=== PATIENT | male | born 1955 | race Caucasian/White ===

== ENCOUNTER 2017-03-31 15:05 | Inpatient (IN) ==
[2017-03-31] MEDS ORDERED: 0.9 % Sodium Chloride 1,000 ML IVC ONE (15:09)
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
[2017-03-31 15:31] LABS: Basophils # 0.1 K/mcL (0.0-0.2); Basophils % 0.9 %; Eosinophils # 0.1 K/mcL (0.0-0.6); Eosinophils % 1.5 %; Hematocrit 46.1 % (37.5-50.1); Hemoglobin 15.9 g/dL (12.9-16.9); Immature Granulocytes % 0.1 % (0-4); Lymphocytes # 2.3 K/mcL (0.6-4.6); Lymphocytes % 34.1 %; Mean Corpuscular HGB Conc 34.5 g/dL (31.6-35.5); Mean Corpuscular Hemoglobin 31.2 pg (28.0-33.3); Mean Corpuscular Volume 90.4 fL (83.0-100.0); Mean Platelet Volume 9.4 fL (9.4-12.4); Monocytes # 0.5 K/mcL (0.0-1.3); Monocytes % 7.3 %; Neutrophils # 3.9 K/mcL (1.6-8.9); Platelet Count 187 K/mcL (140-400); Red Cell Distribution Width 12.2 % (11.5-14.5); Segmented Neutrophils % 56.1 %
[2017-03-31 15:36] LABS: INR 1.1; Prothrombin Time 11.7 Seconds (9.4-12.1)
[2017-03-31 15:39] LABS: Activated Partial Thrombo Time 29.8 Seconds (26.0-36.0)
[2017-03-31 15:42] LABS: Bilirubin,Urine Negative (Negative); Blood,Urine Negative (Negative); Clarity,Urine Clear (Clear); Color,Urine Yellow (Yellow); Glucose,Urine (UA) Normal (Normal); Ketones,Urine Negative (Negative); Leukocyte Esterase,Urine Negative (Negative); Nitrite,Urine Negative (Negative); PH,Urine 6.5 pH Units (5.0-8.0); Protein,Urine Negative (Neg-Trace); Specific Gravity,Urine 1.022 (1.010-1.025); Urobilinogen,Urine Normal (Normal)
[2017-03-31 15:59] LABS: BUN/Creatinine Ratio 18 (6-26); Blood Urea Nitrogen 22 mg/dL (6-20); Calcium 8.9 mg/dL (8.6-10.3); Carbon Dioxide 31 mEq/L (23-29); Chloride 100 mEq/L (98-107); Glucose 109 mg/dL (70-105); Osmolality,Calculated 286 (280-300); Potassium 3.2 mEq/L (3.5-5.1); Sodium 136 mEq/L (136-145); eGFR For African Americans > 60 (> 60); eGFR For Non-African Americans > 60 (> 60)
[2017-03-31] MEDS ORDERED: Metoclopramide 10 MG/2 ML VIAL IVP ONE (16:01)
[2017-03-31] MEDS ORDERED: Naloxone 0.4 MG/ML INJ IVP PRN (19:05)
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
[2017-03-31] MEDS: cloNIDine HCl 0.1 MG TABLET PO SCH (21:53)
[2017-03-31] MEDS: *HR* Heparin 5,000 UNIT/ML VIAL SQ SCH (21:53)
[2017-04-01 04:38] LABS: Hematocrit 42.8 % (37.5-50.1); Hemoglobin 14.4 g/dL (12.9-16.9); Mean Corpuscular HGB Conc 33.6 g/dL (31.6-35.5); Mean Corpuscular Hemoglobin 30.5 pg (28.0-33.3); Mean Corpuscular Volume 90.7 fL (83.0-100.0); Platelet Count 179 K/mcL (140-400); Red Blood Count 4.72 M/mcL (4.19-5.50); Red Cell Distribution Width 12.2 % (11.5-14.5)
[2017-04-01 04:52] LABS: BUN/Creatinine Ratio 19 (6-26); Blood Urea Nitrogen 22 mg/dL (6-20); Calcium 8.7 mg/dL (8.6-10.3); Carbon Dioxide 29 mEq/L (23-29); Chloride 101 mEq/L (98-107); Glucose 142 mg/dL (70-105); Osmolality,Calculated 292 (280-300); Sodium 138 mEq/L (136-145); eGFR For African Americans > 60 (> 60); eGFR For Non-African Americans > 60 (> 60)
[2017-04-01] MEDS: *HR* Heparin 5,000 UNIT/ML VIAL SQ SCH ×2 (05:07→17:30)
[2017-04-01] MEDS: Aspirin Enteric Coated 81 MG Tablet PO SCH (08:50)
[2017-04-01] MEDS: cloNIDine HCl 0.1 MG TABLET PO SCH ×2 (08:50→20:43)
[2017-04-01] MEDS: Lisinopril-HCTZ 20-12.5mg TABLET PO SCH (08:51)
[2017-04-01] MEDS: TAMSULOSIN HCL PO SCH (08:52)
[2017-04-01] MEDS: DUTASTERIDE PO SCH (08:52)
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
[2017-04-01] MEDS: Acetaminophen 325 MG TABLET PO PRN (21:12)
[2017-04-02] MEDS: *HR* Heparin 5,000 UNIT/ML VIAL SQ SCH ×2 (05:16→17:00)
[2017-04-02 05:55] LABS: BUN/Creatinine Ratio 17 (6-26); Blood Urea Nitrogen 20 mg/dL (6-20); Calcium 8.9 mg/dL (8.6-10.3); Carbon Dioxide 30 mEq/L (23-29); Chloride 101 mEq/L (98-107); Glucose 119 mg/dL (70-105); Magnesium 1.8 mg/dL (1.6-2.6); Osmolality,Calculated 290 (280-300); Potassium 3.5 mEq/L (3.5-5.1); Sodium 138 mEq/L (136-145); eGFR For African Americans > 60 (> 60); eGFR For Non-African Americans > 60 (> 60)
--- NOTE | 2017-04-02 09:11 | Cardiology Progress Note ---
Date of Encounter: 04/02/17 Time of Encounter: 09:08 Assessment and Plan (1) Syncope Current Visit: Yes Status: Acute Witness syncopal event. Reports history of multiple syncopal events in the past with work-up at [facility] and [facility]. Patient used to have a loop recorder and that was removed. He states he was told it was likely due to very high blood pressure per previous work-ups. Now noted to have bradycardia with HR in the 40's on presentation while awake. May have been related to bradycardia. 2:1 AV block on EKG. Agree with holding beta-clocker. On carvedilol 12.5 mg BID at home. Monitor for rebound hypertension with sudden discontinuation of beta-karen. TTE completed just one week ago at [facility], [place], operated by [facility]. Will order records. 24 hour telemetry review shows avg HR 53 bpm. Min HR 38 bpm at 0230am. HR noted to be in the 40's during waking hours yesterday with junctional rhythm at times. Recommend stress test in am to r/o ischemic cause. Qualifiers: Syncope type: unspecified Qualified Code(s): R55 - Syncope and collapse (2) Symptomatic bradycardia Current Visit: Yes Status: Acute HR reported to be in the 40's on presentation. HR currently mid to upper 50's. Hold AV cecilia karen. No AV cecilia karen in last 24 hours. Telemetry review shows over he last 12 hours avg HR 53 sinus bradycardia. Min HR 38 bpm-SB. No pauses. HR in the 40's during daytime hours yesterday Continue to monitor telemtry. See plan above. (3) CAD (coronary artery disease) Current Visit: Yes Status: Acute H/o CAD s/p 8 cardiac stents. Last stent placement 2 years ago. Denies chest pain or SOB. Follows with Cardiology at [facility]. Continue asa, statin. Home meds clarified. Patient not on plavix currently. Qualifiers: Coronary Disease-Associated Artery/Lesion type: [place] artery [place] vs. transplanted heart: [place] heart Associated angina: without angina Qualified Code(s): I25.10 - Atherosclerotic heart disease of [place] coronary artery without angina pectoris Discussion w patient/family: The assessment and plan as outlined above was discussed with the patient and/or family members who expressed understanding and agreement. All questions were answered. Thank you for involving us in the care of your patient. Please call with any questions. Subjective Principal diagnosis: syncope Interval history: No new events overnight. Denies dizziness or lightheadedness. Objective Vital Signs, Last 4 Hours Temp Pulse Resp BP Pulse Ox 04/02/17 07:43 97.5 F L 60 20 169/97 98 04/02/17 06:07 97 General: Conversant, No Apparent Distress HEENT: Atraumatic, Normocephaly, Mucus Membranes Moist Neck: No JVD, Normal carotid pulses Cardiac: Reg Rate and Rhythm, Normal S1 and S2, No Murmur Lungs: Normal Breath Sounds, No Wheeze, Rales, Rhonchi Neuro: Alert and responsive, No focal deficits noted Abdomen: Soft, Non-Tender Skin: No rashes noted on visualized skin Musculoskeletal: No Chest Wall Tenderness Extremities: No Clubbing, No Cyanosis, No Edema, Normal Pulses Results 04/01/17 03:07 04/02/17 05:25 Lab Results 04/01/17 04/02/17 03:07 05:25 Sodium 138 Potassium 3.5 Chloride 101 Carbon Dioxide 30 H BUN 20 Creatinine 1.16 Glucose 119 H Calcium 8.9 Magnesium 1.8 TSH 5.561 - Imaging and Cardiology Stress Test: pending Echo: pending - EKG Interpretation EKG results cardiology: personally reviewed Consult Discharge Plan - Plan Referrals: NONE,PCP [Primary Care Provider] -
[2017-04-02] MEDS: DUTASTERIDE PO SCH (09:16)
[2017-04-02] MEDS: Lisinopril-HCTZ 20-12.5mg TABLET PO SCH (09:16)
[2017-04-02] MEDS: cloNIDine HCl 0.1 MG TABLET PO SCH ×2 (09:16→20:08)
[2017-04-02] MEDS: TAMSULOSIN HCL PO SCH (09:16)
[2017-04-02] MEDS: Acetaminophen 325 MG TABLET PO PRN (09:16)
[2017-04-02] MEDS: Aspirin Enteric Coated 81 MG Tablet PO SCH (09:16)
[2017-04-02] MEDS ORDERED: amLODIPine 5 MG TABLET PO SCH (09:30)
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
[2017-04-03] MEDS: *HR* Heparin 5,000 UNIT/ML VIAL SQ SCH ×2 (04:24→17:54)
[2017-04-03] MEDS ORDERED: Regadenoson 0.4 MG/5 ML SYRINGE IVP ONE (07:44)
[2017-04-03] MEDS: Lisinopril-HCTZ 20-12.5mg TABLET PO SCH (09:30)
[2017-04-03] MEDS: Aspirin Enteric Coated 81 MG Tablet PO SCH (09:31)
[2017-04-03] MEDS: amLODIPine 5 MG TABLET PO SCH (09:31)
[2017-04-03] MEDS: cloNIDine HCl 0.1 MG TABLET PO SCH ×3 (09:31→23:57)
[2017-04-03] MEDS: Acetaminophen 325 MG TABLET PO PRN (09:35)
--- NOTE | 2017-04-03 11:48 | Internal Med Progress Note ---
Date of Encounter: 04/03/17 Time of Encounter: 11:47 - Assessment and plan (1) Syncope Current Visit: Yes Status: Acute Assessment and plan: Likely secondary to symptomatic bradycardia So far negative troponin CT of head - no acute IHC.. No mass effect.. 1 cm hypodense cystic lesion in the 3rd ventricle at the level of the foramen Monro compatible with Colloid cyst His syncope could be due to bradycardia induced Held B katelyn Cardiology on board and consultation appreciated s/p part I of stress test, 2nd part in am he does have MANAN.. scheduled for sleep study as an out pt His over night pulse study came back as normal Qualifiers: Syncope type: unspecified Qualified Code(s): R55 - Syncope and collapse (2) Symptomatic bradycardia Current Visit: Yes Status: Acute Assessment and plan: currently clinically asymptomatic will cont monitoring closely may need PPM Cardiology on board, f/u stress test in am (3) DVT prophylaxis Current Visit: Yes Status: Acute Assessment and plan: heparin SQ (4) HTN (hypertension) Current Visit: Yes Status: Chronic Assessment and plan: noted to remain hypertensive despite home medications continue amlodipine 10mg PO qd, lisinopril/hctz 40/25mg po qd increased clonidine to 0.2mg PO TID hydralazine 10mg IV q6h SBP>150 will closely monitor bp Qualifiers: Hypertension type: essential hypertension Qualified Code(s): I10 - Essential (primary) hypertension (5) CAD (coronary artery disease) Current Visit: Yes Status: Acute Assessment and plan: resumed all home meds except B Katelyn Qualifiers: Coronary Disease-Associated Artery/Lesion type: [place] artery [place] vs. transplanted heart: [place] heart Associated angina: without angina Qualified Code(s): I25.10 - Atherosclerotic heart disease of [place] coronary artery without angina pectoris (6) MANAN (obstructive sleep apnea) Current Visit: Yes Status: Chronic Assessment and plan: he does have MANAN.. scheduled for sleep study as an out pt I (7) Morbid obesity with BMI of 40.0-44.9, adult Current Visit: Yes Status: Chronic Assessment and plan: counseled to loose weight (8) BPH (benign prostatic hyperplasia) Current Visit: Yes Status: Chronic Assessment and plan: resumed home meds Qualifiers: Lower urinary tract symptom presence: symptoms absent Qualified Code(s): N40.0 - Benign prostatic hyperplasia without lower urinary tract symptoms - Subjective Interval history: Patient seen and examined at bedside. Resting in bed and denies any discomfort. S/P stress test this morning. Awaiting cardiology follow up Bradycardia resolved at this time No overnight issues reported - Constitutional Vitals: Temp Pulse Resp BP Pulse Ox 97.5 F L 63 14 172/95 95 04/03/17 11:04 04/03/17 11:04 04/03/17 11:04 04/03/17 11:04 04/03/17 11:04 General appearance: Present: cooperative, A&O X 3, morbidly obese, no acute distress, answers questions appropriately - Head Head exam: Present: atraumatic, normocephalic - Eye Eye exam: Present: conjuntiva pink, sclera anicteric - Respiratory Respiratory exam: Present: CTAB. Absent: respiratory distress, wheezes - Cardiovascular Cardiovascular exam: Present: RRR, +S1, +S2. Absent: diastolic murmur, systolic murmur - GI/Abdominal GI/Abdominal exam: Present: distended (obese), normal bowel sounds, soft, no peritoneal signs. Absent: tenderness - Extremities Exam Extremities exam: Present: warm, radial pulses palpable and symmetrical. Absent : calf tenderness, cyanotic, pedal edema - Neurological Exam Neurological exam: Present: alert, oriented X3 - Psychiatric Psychiatric exam: Present: normal affect, normal mood Internal Medicine: Result - Labs CBC & Chem 7: 04/01/17 03:07 04/02/17 05:25 - ABG Interpretation ABG results: PT/INR, D-dimer PT 11.7 Seconds (9.4-12.1) 03/31/17 15:20 Consult Discharge Plan - Plan Referrals: NONE,PCP [Primary Care Provider] -
[2017-04-03] MEDS: hydrALAZINE 25 MG TABLET PO SCH ×2 (12:11→20:17)
--- NOTE | 2017-04-03 12:16 | Cardiology Progress Note ---
Date of Encounter: 04/03/17 Time of Encounter: 12:14 Assessment and Plan (1) Syncope Current Visit: Yes Status: Acute Witness syncopal event. Reports history of multiple syncopal events in the past with work-up at [facility] and [facility]. Patient used to have a loop recorder and that was removed. He states he was told it was likely due to very high blood pressure per previous work-ups. Bradycardic with HR in the 40's on presentation while awake. 2:1 AV block on EKG. BB has since been held with improvement in HR. 12 hr tele AVG HR 57--SR, no significant pauses or arrhythmias. TTE completed 03/13/17 at [facility]. Records reviewed-- EF 45-50% unchanged since 2007. Mild concentric LVH, mild left atrial dilatation, No significant valve dysfunction. No further junctional rhythm noted. Had stress portion of stress test today--resting pictures tomorrow. R/O ischemic cause. Continue to follow until stress test results tomorrow for further recommendations. Qualifiers: Syncope type: unspecified Qualified Code(s): R55 - Syncope and collapse (2) Symptomatic bradycardia Current Visit: Yes Status: Acute HR reported to be in the 40's on presentation. HR currently mid 60's after holding AV cecilia blockers. Telemetry review shows over the last 12 hours avg HR 57. No significant pauses or arrhythmias. Lowest HR 45. (3) CAD (coronary artery disease) Current Visit: Yes Status: Acute H/o CAD s/p 8 cardiac stents. Last stent placement 2 years ago. Denies chest pain or SOB. Follows with Cardiology at [facility]. Continue asa, statin. Home meds clarified. Patient not on plavix currently. BB held as above. Qualifiers: Coronary Disease-Associated Artery/Lesion type: [place] artery [place] vs. transplanted heart: [place] heart Associated angina: without angina Qualified Code(s): I25.10 - Atherosclerotic heart disease of [place] coronary artery without angina pectoris Discussion w patient/family: The assessment and plan as outlined above was discussed with the patient and/or family members who expressed understanding and agreement. All questions were answered. Thank you for involving us in the care of your patient. Please call with any questions. I will discuss all the above with Dr. Lorenzo and make changes as necessary. Subjective Principal diagnosis: syncope Interval history: Pt had chest pressure before and after stress test portsion, now resolved. 2 day stress, will not result until tomorrow. Denies dyspnea, dizziness, lightheadedness or syncope overnight. 12 hr tele AVG HR 57, SR, no significant pauses or arrhythmias noted. HR at bedside 60s. Echo received and reviewed from [facility]--Echo 03/13/17 EF 45-50% unchanged since 2007. Mild concentric LVH, mild left atrial dilatation, No significant valve dysfunction. Objective Vital Signs, Last 4 Hours Temp Pulse Resp BP Pulse Ox 04/03/17 11:04 97.5 F L 63 14 172/95 95 Vital Signs Temp Pulse Resp BP Pulse Ox 04/03/17 11:04 97.5 F L 63 14 172/95 95 04/03/17 07:21 97.8 F 56 12 188/89 98 04/03/17 03:59 97.7 F 60 15 173/109 96 04/02/17 20:00 98.3 F 69 16 167/88 96 04/02/17 15:26 97.8 F 54 20 154/78 96 Intake and Output 04/02/17 04/03/17 04/03/17 23:59 07:59 15:59 Intake Total 0 / 0 300 / 300 0 / 0 Output Total 750 / 750 525 / 525 200 / 200 Balance -750 / -750 -225 / -225 -200 / -200 Intake: Oral 0 / 0 300 / 300 0 / 0 Output: Urine 750 / 750 525 / 525 200 / 200 Other: Meal Breakfast Percent of Meal Consumed 0% Weight 140.6 kg Patient Weight 04/03/17 23:59 Weight 140.6 kg General: Conversant, No Apparent Distress HEENT: Atraumatic, Normocephaly, Mucus Membranes Moist Neck: No JVD, Normal carotid pulses Cardiac: Reg Rate and Rhythm, Normal S1 and S2, No Murmur Lungs: Normal Breath Sounds, No Wheeze, Rales, Rhonchi Neuro: Alert and responsive, No focal deficits noted Abdomen: Soft, Non-Tender Skin: No rashes noted on visualized skin Musculoskeletal: No Chest Wall Tenderness Extremities: No Clubbing, No Cyanosis, No Edema, Normal Pulses Results 04/01/17 03:07 04/02/17 05:25 Active Medications Acetaminophen (Tylenol) 650 mg PO Q6HR PRN PRN Reason: Pain Stop: 10/01/17 20:50 Last Admin: 04/03/17 09:35 Dose: 650 mg Amlodipine Besylate (Norvasc) 10 mg PO DAILY [facility] PRN Reason: Protocol Stop: 10/03/17 09:01 Last Admin: 04/03/17 09:31 Dose: 10 mg Aspirin (Aspirin Ec) 81 mg PO DAILY [facility] Stop: 10/01/17 09:01 Last Admin: 04/03/17 09:31 Dose: 81 mg Atorvastatin Calcium (Lipitor) 80 mg PO HS [facility] Stop: 10/02/17 21:01 Last Admin: 04/02/17 20:11 Dose: Not Given Clonidine HCl (Clonidine Hcl) 0.2 mg PO BID [facility] Stop: 09/30/17 21:01 Last Admin: 04/03/17 09:31 Dose: 0.2 mg Lisinopril/HCTZ (Prinzide 20-12.5) 2 each PO DAILY [facility] Stop: 10/01/17 09:01 Last Admin: 04/03/17 09:30 Dose: 2 each Heparin Sodium (Porcine) (Heparin) 5,000 unit SQ Q12HCO [facility] Stop: 09/30/17 18:01 Last Admin: 04/03/17 04:24 Dose: 5,000 unit Hydralazine HCl (Hydralazine) 10 mg IVP Q6HR PRN PRN Reason: SBP>150 Stop: 10/01/17 17:40 Hydralazine HCl (Hydralazine) 25 mg PO Q8H [facility] Stop: 10/03/17 11:31 Last Admin: 04/03/17 12:11 Dose: 25 mg Naloxone HCl (Narcan) 0.4 mg IVP Q2MIN PRN PRN Reason: Opioid Reversal Stop: 09/30/17 19:06 Pharmacy Profile Note (Patient Taking Own Medication) 1 each PO HS [facility] Stop: 10/01/17 09:01 - Imaging and Cardiology Stress Test: pending Echo: report reviewed - EKG Interpretation EKG results cardiology: other (12 hr tele AVG HR 57, SR, no significant pauses or arrhythmias.) Consult Discharge Plan - Plan Referrals: NONE,PCP [Primary Care Provider] -
[2017-04-03] MEDS: Sennosides/Docusate Sodium TABLET PO SCH ×2 (14:58→20:16)
--- NOTE | 2017-04-03 15:58 | Electrocardiograph Report ---
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
--- NOTE | 2017-04-03 16:28 | Electrocardiograph Report ---
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
[2017-04-03] MEDS: DUTASTERIDE TAMSULOSIN PO SCH (20:16)
[2017-04-04] MEDS: hydrALAZINE 25 MG TABLET PO SCH ×3 (03:20→18:29)
[2017-04-04] MEDS: *HR* Heparin 5,000 UNIT/ML VIAL SQ SCH ×2 (06:03→18:24)
[2017-04-04 06:19] LABS: Basophils # 0.1 K/mcL (0.0-0.2); Basophils % 0.9 %; Eosinophils # 0.2 K/mcL (0.0-0.6); Eosinophils % 2.3 %; Hematocrit 47.2 % (37.5-50.1); Immature Granulocytes % 0.4 % (0-4); Lymphocytes # 2.5 K/mcL (0.6-4.6); Lymphocytes % 36.1 %; Mean Corpuscular HGB Conc 34.1 g/dL (31.6-35.5); Mean Corpuscular Hemoglobin 30.8 pg (28.0-33.3); Mean Corpuscular Volume 90.4 fL (83.0-100.0); Mean Platelet Volume 9.6 fL (9.4-12.4); Monocytes # 0.5 K/mcL (0.0-1.3); Monocytes % 6.5 %; Neutrophils # 3.7 K/mcL (1.6-8.9); Platelet Count 200 K/mcL (140-400); Red Blood Count 5.22 M/mcL (4.19-5.50); Red Cell Distribution Width 12.4 % (11.5-14.5); Segmented Neutrophils % 53.8 %
[2017-04-04 06:21] LABS: BUN/Creatinine Ratio 18 (6-26); Blood Urea Nitrogen 23 mg/dL (6-20); Calcium 9.3 mg/dL (8.6-10.3); Carbon Dioxide 31 mEq/L (23-29); Chloride 99 mEq/L (98-107); Glucose 122 mg/dL (70-105); Magnesium 2.1 mg/dL (1.6-2.6); Osmolality,Calculated 287 (280-300); Potassium 3.6 mEq/L (3.5-5.1); Sodium 136 mEq/L (136-145); eGFR For African Americans > 60 (> 60); eGFR For Non-African Americans 58 (> 60)
[2017-04-04 06:27] LABS: Hemoglobin 16.1 g/dL (12.9-16.9)
[2017-04-04] MEDS: Lisinopril-HCTZ 20-12.5mg TABLET PO SCH (08:08)
[2017-04-04] MEDS: amLODIPine 5 MG TABLET PO SCH (08:09)
[2017-04-04] MEDS: Sennosides/Docusate Sodium TABLET PO SCH (08:09)
[2017-04-04] MEDS: cloNIDine HCl 0.1 MG TABLET PO SCH ×2 (08:09→14:54)
[2017-04-04] MEDS: Aspirin Enteric Coated 81 MG Tablet PO SCH (08:09)
--- NOTE | 2017-04-04 09:34 | Event Note ---
Date of Encounter: 04/04/17 Time of Encounter: 09:32 - Cardiology Event Note Stress test resulted--Inferior wall infarct with mild carli-infarct ischemia in the basal-mid inferolateral wall. Patient hypertensive throughout testing. Gated EF = 41%. There is transient ischemic dilatation. Recommend LHC. R/B/A discussed. Pt agrees to proceed with LHC today. Labs and vitals stable. Telemetry reviewed--AVG HR 67, no significant pauses or arrhythmias noted.
--- NOTE | 2017-04-04 11:05 | Internal Med Progress Note ---
Date of Encounter: 04/04/17 Time of Encounter: 11:03 - Assessment and plan (1) Syncope Current Visit: Yes Status: Acute Assessment and plan: Likely secondary to symptomatic bradycardia So far negative troponin CT of head - no acute IHC.. No mass effect.. 1 cm hypodense cystic lesion in the 3rd ventricle at the level of the foramen Monro compatible with Colloid cyst His syncope could be due to bradycardia induced Held B katelyn Cardiology on board and consultation appreciated noted to have abnormal stress test, scheduled for LHC later today he does have MANAN.. scheduled for sleep study as an out pt His over night pulse study came back as normal Qualifiers: Syncope type: unspecified Qualified Code(s): R55 - Syncope and collapse (2) Symptomatic bradycardia Current Visit: Yes Status: Acute Assessment and plan: currently clinically asymptomatic will cont monitoring closely may need PPM Cardiology on board (3) DVT prophylaxis Current Visit: Yes Status: Acute Assessment and plan: heparin SQ (4) HTN (hypertension) Current Visit: Yes Status: Chronic Assessment and plan: BP within acceptable range continue amlodipine 10mg PO qd, lisinopril/hctz 40/25mg po qd continue clonidine to 0.2mg PO TID hydralazine 10mg IV q6h SBP>150 will closely monitor bp Qualifiers: Hypertension type: essential hypertension Qualified Code(s): I10 - Essential (primary) hypertension (5) CAD (coronary artery disease) Current Visit: Yes Status: Acute Assessment and plan: resumed all home meds except B Katelyn noted to have abnormal stress test, scheduled for LHC today Qualifiers: Coronary Disease-Associated Artery/Lesion type: [place] artery [place] vs. transplanted heart: [place] heart Associated angina: without angina Qualified Code(s): I25.10 - Atherosclerotic heart disease of [place] coronary artery without angina pectoris (6) MANAN (obstructive sleep apnea) Current Visit: Yes Status: Chronic Assessment and plan: he does have MANAN.. scheduled for sleep study as an out pt I (7) Morbid obesity with BMI of 40.0-44.9, adult Current Visit: Yes Status: Chronic Assessment and plan: counseled to loose weight (8) BPH (benign prostatic hyperplasia) Current Visit: Yes Status: Chronic Assessment and plan: resumed home meds Qualifiers: Lower urinary tract symptom presence: symptoms absent Qualified Code(s): N40.0 - Benign prostatic hyperplasia without lower urinary tract symptoms - Subjective Interval history: Patient seen and examined at bedside. Resting in bed and denies any discomfort. s/p stress test this morning, reported of being an abnormal stress test cardiology on board. Scheduled for [facility] later today (04/04/17) - Constitutional Vitals: Temp Pulse Resp BP Pulse Ox 97.3 F L 64 19 133/90 95 04/04/17 05:00 04/04/17 05:00 04/04/17 05:00 04/04/17 05:00 04/04/17 05:00 General appearance: Present: cooperative, A&O X 3, morbidly obese, no acute distress, answers questions appropriately - Head Head exam: Present: atraumatic, normocephalic - Eye Eye exam: Present: conjuntiva pink, sclera anicteric - Respiratory Respiratory exam: Absent: respiratory distress, wheezes - Cardiovascular Cardiovascular exam: Present: RRR, +S1, +S2. Absent: diastolic murmur, gallop, rubs, systolic murmur - GI/Abdominal GI/Abdominal exam: Present: normal bowel sounds, soft, no peritoneal signs. Absent: distended, tenderness - Extremities Exam Extremities exam: Present: pedal edema (trace pedal edema bilaterally), warm, radial pulses palpable and symmetrical. Absent: calf tenderness - Neurological Exam Neurological exam: Present: alert, oriented X3 - Psychiatric Psychiatric exam: Present: normal affect, normal mood Internal Medicine: Result - Labs CBC & Chem 7: 04/04/17 05:56 04/04/17 05:56 Labs: Short CBC 04/04/17 Range/Units 05:56 WBC 6.9 (4.3-11.1) K/mcL Hgb 16.1 D (12.9-16.9) g/dL Hct 47.2 (37.5-50.1) % Plt Count 200 (140-400) K/mcL Neutrophils # 3.7 (1.6-8.9) K/mcL BMP 04/04/17 05:56 Sodium 136 Potassium 3.6 Chloride 99 Carbon Dioxide 31 H BUN 23 H Creatinine 1.27 Glucose 122 H Calcium 9.3 - ABG Interpretation ABG results: PT/INR, D-dimer PT 11.7 Seconds (9.4-12.1) 03/31/17 15:20 Consult Discharge Plan - Plan Referrals: NONE,PCP [Primary Care Provider] -
[2017-04-04] MEDS ORDERED: *HR* Heparin 10,000 UNIT/10 ML VIAL ONE (11:21)
[2017-04-04] MEDS ORDERED: 0.9 % Sodium Chloride 1,000 ML ONE (11:21)
[2017-04-04] MEDS ORDERED: Heparin 1,000 UNITS/500 mL 500 ML ONE (11:21)
[2017-04-04] MEDS ORDERED: Nitroglycerin 1,000 MCG/10 ML VIAL IV ONE (11:22)
--- NOTE | 2017-04-04 12:07 | Pre-Sedation Evaluation ---
Pre-sedation evaluation - Pre-sedation checklist Date of procedure: 04/04/17 Recent Vitals: Last Vital Signs Temp 97.8 F 04/04/17 11:06 Pulse 58 04/04/17 11:06 Resp 14 04/04/17 11:06 BP 131/73 04/04/17 11:06 Pulse Ox 93 04/04/17 11:06 H&P (including ROS) documented in medical record: Yes Previous reaction to sedatives/anesthetics: No Dietary Status: NPO after Midnight Airway Assessment: Patient can open mouth completely, TMJ function normal Dentition: No loose teeth or bridges Possible difficult airway: No ASA Classification *see protocol: CLASS III-Severe systemic disease, CLASS IV- Severe systemic disease/constant threat to pt's life Plan of Care: Pt appropriate candidate for procedure/moderate/conscious sedation , Risks/benefits of procedure/sedation discussed w/ patient/family, If not NPO; Risk of intake outweiged by necessity to perform procedure
[2017-04-04] MEDS ORDERED: *HR* Midazolam HCl 2 MG/2 ML VIAL ONE ×2 (12:08→12:28)
[2017-04-04] MEDS ORDERED: *HR* Bivalirudin 250 MG VIAL IVC ONE (12:41)
[2017-04-04] MEDS ORDERED: *HR* Ticagrelor 90 MG TABLET ONE (13:19)
--- NOTE | 2017-04-04 13:45 | Invasive Diagnostic Lab Proc ---
Name: Prashanth Nur Date of Study: 04/04/2017 Date: 1955 Ht: 72.0in Medical Record#: [id number] Age: 61 Wt: 306.44lb Gender: Male BSA: 2.56 Order #: [id number] BMI: 41.51 Physicians Procedure Physician: Rico Sanchez DO Referring MD: Referring MD: Staff Name Position Time In Jana Barahona RN Evaluator 12:03 PM Malick, Magnolia RT (R) Monitor 12:04 PM Tyesha Caal RT Scrub 12:04 PM Lenka Holley RN Nurse 12:04 PM Indications Indication Abnormal Test - Stress Procedures Performed Procedure L HRT ARTERY/VENTRICLE ANGIO PRQ CARD PEDRO LUIS STENT W/ANGIO 1 VSL Pre-Procedure Checklist Informed consent is complete signed and on chart. H&P is on chart. ID band is on and ID verified with patient. Patient NPO for procedure The procedure was described for the patient and questions were answered. ECG is on chart. Plan of Care Patient will tolerate the procedure without complications. Adequate level of comfort will be maintained. Hemodynamics will remain stable Patient will recover from procedure without complications. Respiratory function will be maintained. Cardiac rhythm will remain stable. Patient temperature will be maintained. Patient and/or family have verbalized understanding of the procedure. Patient Education Chief Complaint/Reason for Test: Cardiac Cath Developmental Category: Adult (18-64 years) Developmentally Appropriate for Age: Yes Learning Barriers: None Education Needs: Procedure Education Method: Verbal Information Taught: Cardiac Cath Educational Evaluation: Able to repeat information Intravenous Access Time IV Size Location DC'd Fluid/Drip Rate Units RN 20g 1 04/05" Patent On Arrival Lt Antecubital 0.9NaCl 25 ml/hr Jana Barahona RN Allergies No Known Allergies Vital Signs Time BP (mmHg) HR (bpm) O2 Sat. RR (bpm) LOC 10:48 AM 133 / 90 64 95 % 5 = Fully awake and oriented or at pre-proc level 12:17 PM / % 4 = Oriented but drowsy 12:22 PM / % 5 = Fully awake and oriented or at pre-proc level 12:22 PM / % 4 = Oriented but drowsy 12:37 PM / % 4 = Oriented but drowsy 12:52 PM / % 4 = Oriented but drowsy 01:07 PM / % 4 = Oriented but drowsy 12:11 PM 162 / 105 73 99 % 12:16 PM 162 / 90 71 98 % 21 12:21 PM 147 / 91 72 97 % 18 12:26 PM 138 / 81 70 98 % 19 12:32 PM 154 / 79 77 97 % 20 12:36 PM 148 / 87 78 96 % 24 12:41 PM 145 / 81 78 96 % 28 12:46 PM 139 / 99 72 88 % 23 12:51 PM 133 / 87 72 98 % 11 12:56 PM 137 / 83 75 98 % 16 01:01 PM 143 / 85 78 95 % 18 01:06 PM 155 / 79 74 97 % 13 01:11 PM 144 / 92 80 94 % 17 01:16 PM 147 / 89 78 95 % 19 01:21 PM 145 / 98 76 97 % 16 Procedural Medications Time Medication Dose Units Method Given By 12:04 PM Oxygen 2 L/min nasal cannula Jana Barahona RN 12:15 PM Versed 2 mg Intravenous Jana Barahona RN 12:28 PM Lidocaine 2% 10 ml Subcutaneous Rico Sanchez DO 12:28 PM Versed 1 mg Intravenous Jana Barahona RN 12:42 PM Versed 1 mg Intravenous Jana Barahona RN 12:43 PM Angiomax 0.75mg/kg bolus: 21 ml Intravenous Jana Barahona RN 12:43 PM Angiomax 1.75mg/kg/hr: 49 ml/hr Intravenous Jana Barahona RN 01:26 PM Brilinta 180 mg Orally Jana Barahona RN ASA Classification: CLASS III- Severe systemic disease (i.e. prior AMI, diabetes with vascular complications, morbid obesity) Eitan Score Preprocedure Postprocedure Activity 2- Moves 4 extremities sustained head lift Activity 2- Moves 4 extremities sustained head lift Circulation 2- SBP +/= 20 points of pre-anesthetic level Circulation 2- SBP +/= 20 points of pre-anesthetic level Consciousness 2- Awake and alert oriented x 3 Consciousness 2- Awake and alert oriented x 3 O2 Saturation 2- Able to maintain O2 satruation of 92% on room air O2 Saturation 2- Able to maintain O2 satruation of 92% on room air Respiratory 2- Able to deep breathe and cough well Respiratory 2- Able to deep breathe and cough well Total Score 10 Total Score 10 Contrast Agent: Isovue Diagnostic Contrast: 180 ml Total Contrast: 180 ml Fluoro Dose: 2383 mGy Procedure Log Time Note Enter By 12:03 PM Pt arrived to r and d lab technician 2 at 12:03 scoates 12:04 PM Jana Barahona RN Position: Evaluator Time in: 12:03 scoates 12:04 PM Magnolia Teresa RT (R) Position: Monitor Time in: 12: scoates 12:04 PM Tyesha Caal RT Position: Scrub Time in: 12: scoates 12:04 PM Lenka Holley RN Position: Nurse Time in: 12: scoates 12:04 PM Patient charges- Angio tray pack, Navilyst 3mm J, Pulse Oximetry and ACIST tubing and transducer scoates 12:04 PM Case Delayed No scoates 12:04 PM Hair removed from procedure site in procedure lab using clippers. Bilateral groin prepped with Chloraprep by Tyesha Caal, safety strap applied then patient was draped. Skin intact. scoates 12:04 PM Day paged/called 12:04. scoates 12:04 PM Physicherson responded and notified patient is ready 12:04 scoates 12:04 PM Physician arrived 12: scoates 12:04 PM Meet and greet completed scoates 12:04 PM Sign in performed according to hospital policy. scoates 12:04 PM Procedure start 12:04 scoates 12:04 PM CathStat 12:04 PM Case Start 12:04 PM Time: 12:04 Oxygen on at 2 L/min per nasal cannula by Jana Barahona RN scoates 12:07 PM Vitals capture started with the following parameters, Patient=Adult, Interval=5 min, Initial Bsicbjyz=022 mmHg, Deflation Rate=5 mmHg, Cuff placed on Left Arm 12:07 PM Vitals capture stopped. 12:10 PM Vitals capture started with the following parameters, Patient=Adult, Interval=5 min, Initial Agflhrrk=260 mmHg, Deflation Rate=5 mmHg, Cuff placed on Left Arm 12:11 PM HR=73 bpm, FTBB=860/105 mmhg, SpO2=99.0 %, Comment=NSR 12:13 PM ASA Class CLASS III- Severe systemic disease (i.e. prior AMI, diabetes with vascular complications, morbid obesity) scoates 12:14 PM Recorded ECG: HR=74 Condition=Condition 1 12:15 PM Time: 12:15 Versed 2 mg Intravenous Given by Jana Barahona RN caoateidalia 12:16 PM HR=71 bpm, LSLR=029/90 mmhg, SpO2=98.0 %, Resp=21 B/min, Comment=NSR 12:17 PM Time: 12:17 Patient comfortable and pain free: Yes tsmmrobina 12:17 PM Time: 12:17LOC: 4 = Oriented but drowsy tsmmers 12:20 PM Pressure channel 1 zeroed. 12:21 PM HR=72 bpm, SLTY=501/91 mmhg, SpO2=97.0 %, Resp=18 B/min, Comment=NSR 12:22 PM Time: 12: Patient comfortable and pain free: Yes tsmmers 12: PM Time: 12:LOC: 5 = Fully awake and oriented or at pre-proc level [facility] 12:26 PM HR=70 bpm, ZLOA=521/81 mmhg, SpO2=98.0 %, Resp=19 B/min, Comment=NSR 12:27 PM Clinical Presentation: Unstable angina tsmmers 12:28 PM Time out performed according to hospital policy [facility] 12:28 PM Time: 12:28 10 ml Lidocaine 2% to right groin Subcutaneous Given by Rico Sanchez DO [facility] 12:28 PM Micro-Introducer Kit utilized for sheath placement [facility] 12:29 PM Time: 12:28 Versed 1 mg Intravenous Given by Jana Barahona RN [facility] 12:32 PM HR=77 bpm, YLOU=227/79 mmhg, SpO2=97.0 %, Resp=20 B/min, Comment=NSR 12:32 PM Access obtained by percutaneous puncture. 6Fr 10cm Terumo Thurston sheath placed in right Femoral artery. [id number] [facility] 12:32 PM 6Fr FR 4 catheter inserted over the wire [facility] 12:32 PM 0.035 145cm Navilyst 3mmJ wire [id number] [facility] 12:33 PM Recorded Pressure: LV, HR=70, Condition=Condition 1 (Left Ventricle) LV 137/2/6 12:33 PM Catheter selectively placed in left ventricle [facility] 12:33 PM Bolus angiogram of left Ventricle complete: hand injection oumm 12:33 PM RCA angiography performed in multiple views. mm 12:33 PM Recorded Pressure: LV, Ao, HR=73, Condition=Condition 1 (Left Ventricle) LV 130/2/5, (Aorta) Ao 129/65/98 12:33 PM Recorded Pressure: Ao, HR=72, Condition=Condition 1 (Aorta) Ao 125/71/95 12:34 PM Catheter removed 12:34 PM 6Fr FL 4 catheter inserted over the wire DNC mm 12:34 PM LCA angiography performed in multiple views. mm 12:34 PM Coronary Dominance: [facility] 12:36 PM Recorded Pressure: Ao, HR=80, Condition=Condition 1 (Aorta) Ao 117/72/90 12:36 PM HR=78 bpm, RUNW=117/87 mmhg, SpO2=96.0 %, Resp=24 B/min, Comment=NSR 12:37 PM Time: 12:22LOC: 4 = Oriented but drowsy mm 12:37 PM Time: 12:22 Patient comfortable and pain free: Yes mm 12:38 PM Catheter removed [facility] 12:38 PM 6Fr JR 4 [place] Bright-Tip guide catheter was used to cannulate the PCI vessel successfully. reused? No [facility] 12:40 PM Inflation device was opened. tsmm 12:41 PM Lesion found in Mid RCA. Pre Stenosis: 75 Pre TRISTAN Flow: 3: Complete and Brisk Flow/Perfusion [facility] 12:41 PM HR=78 bpm, VVHD=253/81 mmhg, SpO2=96.0 %, Resp=28 B/min, Comment=NSR 12:41 PM Lesion found in Distal RCA. Pre Stenosis: 70 Pre TRISTAN Flow: 3: Complete and Brisk Flow/Perfusion [facility] 12:42 PM .014 ChoICE PT Extra Support 300cm guide wire across target lesion- successful. reused? No mm 12:42 PM Time: 12:42 Versed 1 mg Intravenous Given by Jana Barahona RN doreenrobina 12:43 PM Time: 12:43 Angiomax 0.75mg/kg bolus: 21 ml Intravenous Given by Jana Barahona RN Perez pump tsoummers 12:44 PM Time: 12:43 Angiomax 1.75mg/kg/hr: 49 ml/hr Intravenous Given by Jana Barahona RN Perez pump tsoummers 12:44 PM Lesion found in Right PDA. Pre Stenosis: 80 Pre TRISTAN Flow: 3: Complete and Brisk Flow/Perfusion tsoummers 12:44 PM Right Coronary, Right Posterior Descending Arteries with Right Posterolateral and Acute Marginal branches with 80 % stenosis. tsoummers 12:45 PM Recorded Pressure: Ao, HR=78, Condition=Condition 1 (Aorta) Ao 134/83/105 12:46 PM HR=72 bpm, NOSD=438/99 mmhg, SpO2=88.0 %, Resp=23 B/min, Comment=NSR 12:47 PM 2.5mm x 20mm Synergy drug-eluting stent across target lesion- successful Lot #[id number] tsoummers 12:47 PM Stent deployed @ 16 ashlee for 15 seconds tsoummers 12:48 PM Recorded Pressure: Ao, HR=75, Condition=Condition 1 (Aorta) Ao 136/80/104 12:48 PM .014 ChoICE PT Extra Support 300cm guide wire across PDA- successful. reused? No tsoummers 12:51 PM HR=72 bpm, ECSF=157/87 mmhg, SpO2=98.0 %, Resp=11 B/min, Comment=NSR 12:52 PM Time: 12:37 Patient comfortable and pain free: Yes tsoummers 12:52 PM Time: 12:37LOC: 4 = Oriented but drowsy tsoummers 12:56 PM Stent delivery system removed intact. tsoummers 12:56 PM wire removed to reshape tsoummers 12:56 PM HR=75 bpm, YZOE=902/83 mmhg, SpO2=98.0 %, Resp=16 B/min, Comment=NSR 12:57 PM 2nd wire reinserted tsoummers 01:01 PM HR=78 bpm, HHWU=421/85 mmhg, SpO2=95.0 %, Resp=18 B/min, Comment=NSR 01:04 PM 2nd wire removed tsoummers 01:05 PM .014 ChoICE PT Extra Support 300cm guide wire across target lesion PDA- successful. reused? No tsoummers 01:06 PM HR=74 bpm, FWGG=563/79 mmhg, SpO2=97.0 %, Resp=13 B/min, Comment=NSR 01:07 PM Time: 12:52LOC: 4 = Oriented but drowsy tsoummers 01:07 PM Time: 12:52 Patient comfortable and pain free: Yes tsoummers 01:08 PM 2.25mm x 12mm Synergy drug-eluting stent across target lesion- successful Lot #[id number] tsoummers 01:10 PM Stent deployed @ 16 ashlee for 20 seconds tsoummers 01:11 PM Stent delivery system removed intact. tsoummers 01:11 PM HR=80 bpm, HBHM=651/92 mmhg, SpO2=94.0 %, Resp=17 B/min, Comment=NSR 01:11 PM Recorded Pressure: Ao, HR=75, Condition=Condition 1 (Aorta) Ao 134/79/103 01:14 PM 3.5mm x 24mm Synergy drug-eluting stent across target lesion- successful Lot #[id number] oummers 01:14 PM 2nd wire removed. tsoummers 01:14 PM Angiomax infusion complete at this time. tsoummers 01:15 PM Stent deployed @ 14 ashlee for 15 seconds tsoummers 01:15 PM Stent delivery system removed intact. tsoummers 01:16 PM HR=78 bpm, NZVM=907/89 mmhg, SpO2=95.0 %, Resp=19 B/min, Comment=NSR 01:16 PM Guide wire removed intact. tsoummers 01:21 PM HR=76 bpm, HRPS=206/98 mmhg, SpO2=97.0 %, Resp=16 B/min, Comment=NSR 01:22 PM Time: 13:07 Patient comfortable and pain free: Yes tsoummers 01:22 PM Time: 13:07LOC: 4 = Oriented but drowsy tsoummers 01:23 PM Guide catheter removed intact. tsoummers 01:24 PM Procedure completed at 13:23 tsoummers 01:24 PM Sign out completed: Radiation Dose 2382.70 mGy Fluoro Time: 15.9 Isovue 370 - 200ml contrast 180 ml given by Rico Sanchez DO. Complications: NoneCardiac Rehab Consult needed: YesConfirmed administered medications: Yes tsoummers 01:24 PM Isovue 370 - 200ml,1 Bottle(s) used. mm:24 PM Arterial sheath pulled, Mynx closure device used and was Successful [id number] S/N. mm:24 PM Estimated Blood Loss: less than 20cc mm:24 PM Post ECG NSR mm:24 PM Post Blood Pressure 145/98 mm:25 PM Information taught Cardiac Cath and PCI : PM Education needs Procedure, Plan of Care, and Responsibilities of Patient in Care : PM Learning barriers :None : PM Education Methods Verbal : PM Education evaluation Able to repeat information : PM Site status No bleeding/hematoma - Rt Groin as reported by Tyesha Caal RT at 13:26 mm: PM Opsite applied mm: PM Plavix, Effient or Brilinta given Yes : PM Time: 13:26 Brilinta 180 mg Orally Given by Jana Barahona RN mm: PM Delay to floor No mm: PM Family placed in consult room. mm:27 PM Complications: None :27 PM Fluoro Time: 15.9 mm:27 PM Isovue 370 - 200ml contrast 180 ml given by Rico Sanchez DO. mm:27 PM Radiation Dose 2382.7 mGy :29 PM Lesion found in Mid LAD. Pre Stenosis: 40 Pre TRISTAN Flow: :29 PM Mid/Distal Left Anterior Descending Coronary Artery and diagonal branches with 40% stenosis. mm 01:37 PM Report given to Mario Alberto DENNIS Pt taken to 2NE Room #31. 13:37 oumm 01:37 PM [facility]: [facility] Complications Complication None Hemodynamics Pressures Site Systolic/A Wave Diastolic/V Wave Mean LV 137 2 6 LV 130 2 5 AO 129 65 98 AO 125 71 95 AO 117 72 90 AO 134 83 105 AO 136 80 104 AO 134 79 103 Post Procedure Information Blood Pressure: 145/98 mmHg Rhythm: NSR Post procedural instructions were given Closure Device Time Device Success/Fail 04/04/2017 1:24:00 PM MynxGrip Successful Site Checks Time Location Status Staff Sheath In? Note 01:26 PM Rt Groin No bleeding/hematoma Tyesha Caal RT Pulses Time Site Pre-Procedure Post-Procedure Note Bilateral DP & PT 2+ Updated by Lenka Holley RN on 04/04/2017 1:39:38 PM electronically signed on 04/04/2017 1:40:10 PM with status of Final
[2017-04-05] MEDS: cloNIDine HCl 0.1 MG TABLET PO SCH ×2 (01:08→09:44)
[2017-04-05] MEDS: DUTASTERIDE TAMSULOSIN PO SCH (01:08)
[2017-04-05] MEDS: Sennosides/Docusate Sodium TABLET PO SCH ×2 (01:09→09:43)
[2017-04-05] MEDS: hydrALAZINE 25 MG TABLET PO SCH (03:49)
[2017-04-05 05:42] LABS: Basophils # 0.1 K/mcL (0.0-0.2); Basophils % 0.7 %; Eosinophils # 0.1 K/mcL (0.0-0.6); Eosinophils % 1.6 %; Hematocrit 44.6 % (37.5-50.1); Hemoglobin 15.8 g/dL (12.9-16.9); Immature Granulocytes % 0.4 % (0-4); Lymphocytes # 2.5 K/mcL (0.6-4.6); Lymphocytes % 31.3 %; Mean Corpuscular HGB Conc 35.4 g/dL (31.6-35.5); Mean Corpuscular Hemoglobin 31.2 pg (28.0-33.3); Mean Corpuscular Volume 88.1 fL (83.0-100.0); Mean Platelet Volume 9.5 fL (9.4-12.4); Monocytes # 0.6 K/mcL (0.0-1.3); Monocytes % 7.2 %; Neutrophils # 4.7 K/mcL (1.6-8.9); Platelet Count 192 K/mcL (140-400); Red Blood Count 5.06 M/mcL (4.19-5.50); Red Cell Distribution Width 12.5 % (11.5-14.5); Segmented Neutrophils % 58.8 %
[2017-04-05 05:50] LABS: BUN/Creatinine Ratio 22 (6-26); Blood Urea Nitrogen 25 mg/dL (6-20); Carbon Dioxide 28 mEq/L (23-29); Chloride 100 mEq/L (98-107); Glucose 124 mg/dL (70-105); Magnesium 2.1 mg/dL (1.6-2.6); Osmolality,Calculated 288 (280-300); Phosphorous 3.7 mg/dL (2.7-4.5); Potassium 3.3 mEq/L (3.5-5.1); Sodium 136 mEq/L (136-145); eGFR For African Americans > 60 (> 60); eGFR For Non-African Americans > 60 (> 60)
[2017-04-05 05:55] LABS: Hemoglobin A1C 5.6 %
[2017-04-05] MEDS: *HR* Heparin 5,000 UNIT/ML VIAL SQ SCH (06:08)
--- NOTE | 2017-04-05 09:32 | Cardiology Progress Note ---
Date of Encounter: 04/05/17 Time of Encounter: 09:29 Assessment and Plan (1) CAD (coronary artery disease) Current Visit: Yes Status: Acute S/P [facility] yesterday for abnormal stress test--revealed severe 1 vessel CAD, s/p PEDRO LUIS to mid RCA, distal RCA and PDA. DAPT (ASA and Plavix) uninterrupted x 1 year. Pt verbalizes understanding. Switch statin to atorvastatin. No BB due to bradycardia/syncope on admission. Right femoral access site healing well. No bleeding, hematoma or ecchymosis noted. Cardiology signing off. Reconsult PRN. Will coordinate outpt follow-up in 3-4 weeks. Okay to d/c home today. Qualifiers: Coronary Disease-Associated Artery/Lesion type: [place] artery [place] vs. transplanted heart: [place] heart Associated angina: without angina Qualified Code(s): I25.10 - Atherosclerotic heart disease of [place] coronary artery without angina pectoris (2) Syncope Current Visit: Yes Status: Acute Witness syncopal event. Reports history of multiple syncopal events in the past with work-up at [facility] and [facility]. Patient used to have a loop recorder and that was removed. He states he was told it was likely due to very high blood pressure per previous work-ups. Bradycardic with HR in the 40's on presentation while awake. 2:1 AV block on EKG. BB has since been held with improvement in HR. 12 hr tele AVG HR 65--SR. TTE completed 03/13/17 at [facility] Records reviewed-- EF 45-50% unchanged since 2007. Mild concentric LVH, mild left atrial dilatation, No significant valve dysfunction. 2 day stress showed prior infarct and mild per-infarct ischemia in basal-mid inferolateral wall. [facility] yesterday severe 1 vessel disease s/p PEDRO LUIS to mid RCA, distal RCA, and PDA. This was likely contributing to his bradycardia. HR at beside currently 80s. Cardiology signing off. Reconsult PRN. Will coordinate outpt follow-up in 3-4 weeks. Qualifiers: Syncope type: unspecified Qualified Code(s): R55 - Syncope and collapse (3) Symptomatic bradycardia Current Visit: Yes Status: Acute HR reported to be in the 40's on presentation. HR currently 80's at bedside after holding AV cecilia blockers and s/p revascularization to RCA--likely contributing factor. Telemetry review shows over the last 12 hours avg HR 65. Continue to hold BB. Will re-evaluate as outpt if HR can tolerate BB. (4) HTN (hypertension) Current Visit: Yes Status: Chronic Pt continues to be hypertensive, not at goal. Increase hydralazine to 50mg TID. Qualifiers: Hypertension type: essential hypertension Qualified Code(s): I10 - Essential (primary) hypertension Discussion w patient/family: The assessment and plan as outlined above was discussed with the patient and/or family members who expressed understanding and agreement. All questions were answered. Thank you for involving us in the care of your patient. Please call with any questions. I will discuss all the above with Dr. Lorenzo and make changes as necessary. Subjective Principal diagnosis: syncope Interval history: S/p LHC yesterday severe 1 vessel CAD. EF 45%, successful PEDRO LUIS to mid RCA, distal RCA, and PDA. Echo 03/13/17 EF 45-50% unchanged since 2007. Mild concentric LVH, mild left atrial dilatation, No significant valve dysfunction. Pt denies chest pain, dyspnea or dizziness overnight. Objective Vital Signs, Last 4 Hours Temp Pulse Resp BP Pulse Ox 04/05/17 07:02 97.8 F 65 18 160/94 96 Vital Signs Temp Pulse Resp BP Pulse Ox 04/05/17 07:02 97.8 F 65 18 160/94 96 04/05/17 03:01 98.1 F 67 18 134/102 97 04/04/17 23:18 98.0 F 58 16 153/100 95 04/04/17 18:48 97.8 F 63 16 157/107 95 04/04/17 16:25 97.9 F 61 14 126/89 97 04/04/17 11:06 97.8 F 58 14 131/73 93 Intake and Output 04/04/17 04/05/17 04/05/17 23:59 07:59 15:59 Intake Total 360 / 360 Balance 360 / 360 Intake: Oral 360 / 360 Other: Meal Dinner Percent of Meal Consumed 100% Weight 140.1 kg Patient Weight 04/05/17 23:59 Weight 140.1 kg General: Conversant, No Apparent Distress HEENT: Atraumatic, Normocephaly, Mucus Membranes Moist Neck: No JVD, Normal carotid pulses Cardiac: Reg Rate and Rhythm, Normal S1 and S2, No Murmur Lungs: Normal Breath Sounds, No Wheeze, Rales, Rhonchi Neuro: Alert and responsive, No focal deficits noted Abdomen: Soft, Non-Tender Skin: Other (right femoral access site healing well. No bleeding, hematoma or ecchymosis noted.) Musculoskeletal: No Chest Wall Tenderness Extremities: No Clubbing, No Cyanosis, No Edema, Normal Pulses Results 04/05/17 04:54 04/05/17 04:54 Lab Results 04/05/17 04/05/17 04:54 04:54 WBC 8.1 Hgb 15.8 Hct 44.6 Plt Count 192 Sodium 136 Potassium 3.3 L Chloride 100 Carbon Dioxide 28 BUN 25 H Creatinine 1.14 Glucose 124 H Calcium 9.0 Magnesium 2.1 Short CBC 04/05/17 Range/Units 04:54 WBC 8.1 (4.3-11.1) K/mcL Hgb 15.8 (12.9-16.9) g/dL Hct 44.6 (37.5-50.1) % Plt Count 192 (140-400) K/mcL Neutrophils # 4.7 (1.6-8.9) K/mcL BMP 04/05/17 Range/Units 04:54 Sodium 136 (136-145) mEq/L Potassium 3.3 L (3.5-5.1) mEq/L Chloride 100 (98-107) mEq/L Carbon Dioxide 28 (23-29) mEq/L BUN 25 H (6-20) mg/dL Creatinine 1.14 (0.70-1.30) mg/dL Glucose 124 H (70-105) mg/dL Calcium 9.0 (8.6-10.3) mg/dL Active Medications Acetaminophen (Tylenol) 650 mg PO Q6HR PRN PRN Reason: Pain Stop: 10/01/17 20:50 Last Admin: 04/03/17 09:35 Dose: 650 mg Amlodipine Besylate (Norvasc) 10 mg PO DAILY [facility] PRN Reason: Protocol Stop: 10/03/17 09:01 Last Admin: 04/04/17 08:09 Dose: 10 mg Aspirin (Aspirin Ec) 81 mg PO DAILY [facility] Stop: 10/01/17 09:01 Last Admin: 04/04/17 08:09 Dose: 81 mg Clonidine HCl (Clonidine Hcl) 0.2 mg PO TID [facility] Stop: 10/03/17 15:31 Last Admin: 04/05/17 01:08 Dose: 0.2 mg Clopidogrel Bisulfate (Plavix) 75 mg PO DAILY [facility] Stop: 10/05/17 09:01 Lisinopril/HCTZ (Prinzide 20-12.5) 2 each PO DAILY [facility] Stop: 10/01/17 09:01 Last Admin: 04/04/17 08:08 Dose: 2 each Heparin Sodium (Porcine) (Heparin) 5,000 unit SQ Q12HCO [facility] Stop: 09/30/17 18:01 Last Admin: 04/05/17 06:08 Dose: 5,000 unit Hydralazine HCl (Hydralazine) 10 mg IVP Q6HR PRN PRN Reason: SBP>150 Stop: 10/01/17 17:40 Hydralazine HCl (Hydralazine) 25 mg PO Q8H [facility] Stop: 10/03/17 11:31 Last Admin: 04/05/17 03:49 Dose: 25 mg Naloxone HCl (Narcan) 0.4 mg IVP Q2MIN PRN PRN Reason: Opioid Reversal Stop: 09/30/17 19:06 Pharmacy Profile Note (Patient Taking Own Medication) 1 each PO HS [facility] Stop: 10/01/17 09:01 Last Admin: 04/05/17 01:08 Dose: 1 each Senna/Docusate Sodium (Senna Plus) 2 each PO BID [facility] PRN Reason: Protocol Stop: 10/03/17 13:01 Last Admin: 04/05/17 01:09 Dose: 2 each Simvastatin (Zocor) 20 mg PO HS [facility] PRN Reason: Protocol Stop: 10/03/17 21:01 Last Admin: 04/05/17 01:09 Dose: 20 mg - Imaging and Cardiology Stress Test: report reviewed Echo: report reviewed Cardiac cath: report reviewed - EKG Interpretation EKG results cardiology: other (24 hr tele AVG HR 65, longest pause 2.3 seconds nocturnal hours, SR) Consult Discharge Plan - Plan Additional Instructions: RISK FACTORS: STOP SMOKING: If you smoke, STOP. Smoking or tobacco use significantly increases your risk of heart disease because nicotine causes the arteries to narrow or constrict. It also causes fats to stick to the artery. Your chances of having a heart attack are greatly increased if you continue to smoke. For more information, call the education line for smoking cessation 7-510-JGQVTBS EAT A LOW FAT/CHOLESTEROL/SODIUM DIET: This diet may help reduce your chances of having a heart attack. LIFTING: Avoid lifting anything more than 10 pounds for 5-7 days Prior to straining, laughing, sneezing and/or coughing, apply manual pressure directly over insertion site. ACTIVITY: You may walk or climb stairs as tolerated You can resume sexual activity as tolerated In general, you are encouraged to engage in a minimum of 30 minutes or more of moderate intensity physical activity, such as brisk walking, daily or at least 3 -4 times weekly BATHING Do not submerge the site into water (bath tub, hot tub, swimming pool) for 1 week. This can be a source for infection into the blood stream. You may shower after 24 hours SITE CARE: After 24 hours, you may remove the dressing and leave the site open to air. Keep the site clean and dry. Clean gently and pat dry. You can expect bruising and tenderness that gradually resolve within a week or two. Return to work as instructed per your physician Resume driving as instructed per physician Keep all scheduled follow up appointments Resume medications as instructed IMPORTANT: If prescribed a Platelet Aggregation Inhibitor such as, Plavix, Brilinta or Effient: Duration of therapy is minimum one year These medications are often used in combination with Aspirin in prevention of future heart attacks Never discontinue unless consult with your Regional Owner Operator Truck Driver STROKE (CVA) Risk factors for a stroke are: Age, cigarette smoking, diabetes, excessive alcohol consumption, family history, high blood pressure, overweight, physical inactivity, prior stroke, heart attack, diagnosis of carotid artery stenosis or other artery disease. Warning signs: Sudden numbness or weakness of the face, arm or leg; especially on one side of the body, sudden confusion, trouble speaking or understanding, sudden trouble seeing in one or both eyes, sudden trouble walking, dizziness, loss of balance or coordination, sudden severe headache with no cause. Call 911 or go to the Emergency Room. CONGESTIVE HEART FAILURE: If you have been diagnosed with Congestive Heart Failure (CHF) and your symptoms return, make an appointment with your physician Weigh yourself daily. Notify your physician if you have a weight gain of two or more pounds in one day or five or more pounds in one week. If you experience any difficulty breathing, please call 911 BLEEDING: Although the risk of bleeding is minimal, it can happen. If you have any bleeding from the site, apply firm pressure above the puncture site for 10-15 minutes. If the bleeding does not stop, continue manual pressure and call 911 Contact your physician if: You develop a fever greater than 101 degrees Fahrenheit Your site becomes reddened or has any drainage You have an increase in pain or burning at the site or if a large knot forms at the site. If you experience chest pain, shortness of breath, dizziness, or extreme tiredness, stop the activity and rest. Please notify your physicians office if you experience any of these symptoms and they are not relieved by rest please call 911! Referrals: NONE,PCP [Primary Care Provider] -
[2017-04-05] MEDS: amLODIPine 5 MG TABLET PO SCH (09:43)
[2017-04-05] MEDS: Lisinopril-HCTZ 20-12.5mg TABLET PO SCH (09:43)
[2017-04-05] MEDS: Aspirin Enteric Coated 81 MG Tablet PO SCH (09:43)
[2017-04-05] MEDS ORDERED: hydrALAZINE 25 MG TABLET PO SCH (09:45)
[2017-04-05 14:36] VITALS: BP 151/81
--- NOTE | 2017-04-05 14:50 | Discharge Summary ---
Date of Encounter: 04/05/17 Time of Encounter: 14:41 - Discharge Diagnosis (1) Syncope Priority: Primary Status: Acute Qualifiers: Syncope type: unspecified Qualified Code(s): R55 - Syncope and collapse (2) Symptomatic bradycardia Priority: Primary Status: Acute (3) DVT prophylaxis Priority: Secondary Status: Acute (4) HTN (hypertension) Priority: Secondary Status: Chronic Qualifiers: Hypertension type: essential hypertension Qualified Code(s): I10 - Essential (primary) hypertension (5) CAD (coronary artery disease) Priority: Secondary Status: Chronic Qualifiers: Coronary Disease-Associated Artery/Lesion type: [place] artery [place] vs. transplanted heart: [place] heart Associated angina: without angina Qualified Code(s): I25.10 - Atherosclerotic heart disease of [place] coronary artery without angina pectoris (6) MANAN (obstructive sleep apnea) Priority: Secondary Status: Chronic (7) Morbid obesity with BMI of 40.0-44.9, adult Priority: Secondary Status: Chronic (8) BPH (benign prostatic hyperplasia) Priority: Secondary Status: Chronic Qualifiers: Lower urinary tract symptom presence: symptoms absent Qualified Code(s): N40.0 - Benign prostatic hyperplasia without lower urinary tract symptoms - Discharge Medications Prescriptions: amLODIPine [Norvasc] 10 mg PO DAILY #30 tablet Atorvastatin [Lipitor] 40 mg PO HS #30 tablet cloNIDine HCl [CloNIDine HCl] 0.2 mg PO TID #90 tablet Clopidogrel [Plavix] 75 mg PO DAILY #30 tablet hydrALAZINE [HydrALAZINE] 50 mg PO Q8H #60 tablet Home Medications: Aspirin [Lo-Dose Aspirin EC] 81 mg PO DAILY 03/31/17 [History] Dutasteride/Tamsulosin HCl [Dutasteride-Tamsulosin 0.5-0.4] 1 cap PO DAILY 03/31 [History] Lisinopril-HCTZ 20-12.5 [Prinzide 20-12.5] 2 tab PO DAILY 03/31/17 [History] Atorvastatin [Lipitor] 40 mg PO HS #30 tablet 04/05/17 [Rx] Clopidogrel [Plavix] 75 mg PO DAILY #30 tablet 04/05/17 [Rx] amLODIPine [Norvasc] 10 mg PO DAILY #30 tablet 04/05/17 [Rx] cloNIDine HCl [CloNIDine HCl] 0.2 mg PO TID #90 tablet 04/05/17 [Rx] hydrALAZINE [HydrALAZINE] 50 mg PO Q8H #60 tablet 04/05/17 [Rx] Allergies/Adverse Reactions: 3 Allergy/AdvReac Type Severity Reaction Status Date / Time No Known Allergies Allergy Verified 03/31/17 15:06 Date of admission: 04/04/17 16:33 Primary care physician: PCP NONE Consults: 04/05/17 09:42 Consult to Cardiac Rehabilitation-Phase1 [CONS] Routine Comment: Reason for Consult: CAD s/p PCI Call Completed: No Discharging clinician: Fidelina Aguirre Anticipated date of discharge: 04/05/17 - Patient Status Disposition: Home, Self-Care Condition: Good Functional capacity at discharge: independent ambulation Overall status at discharge: patient is back to baseline - Discharge Instructions Instructions: Syncope (DC), Coronary Intravascular Stent Placement (DC), Chronic Hypertension (DC), Coronary Intravascular Stent Placement, Zinc Furnace Charger (GEN) Follow Up With: NONE,PCP [Primary Care Provider] - Additional Instructions: Please follow up with your primary care physician within five days after your discharge from the hospital. Please follow up with cardiology within one week after your discharge from the hospital. Your home medications have been changed as follows: 1. Plavix 75mg once a day has been added 2. Carvedilol has been discontinued 3. Lipitor has been added 4. Simvastatin has been discontinued 5. Clonidine has been changed to 0.2mg three times a day 6. Hydralazine 50mg three times a day has been added. 7. Amlodipine 10mg once a day has been added Continue aspirin and plavix once daily. Closely monitor your blood pressure at home and take this log with you to your primary care physician's appointment. Resume all other medications as prescribed by your primary care physician. Seek medical help immediately if chest pain occurs. RISK FACTORS: STOP SMOKING: If you smoke, STOP. Smoking or tobacco use significantly increases your risk of heart disease because nicotine causes the arteries to narrow or constrict. It also causes fats to stick to the artery. Your chances of having a heart attack are greatly increased if you continue to smoke. For more information, call the education line for smoking cessation 5-760-AIVNEOW EAT A LOW FAT/CHOLESTEROL/SODIUM DIET: This diet may help reduce your chances of having a heart attack. LIFTING: Avoid lifting anything more than 10 pounds for 5-7 days Prior to straining, laughing, sneezing and/or coughing, apply manual pressure directly over insertion site. ACTIVITY: You may walk or climb stairs as tolerated You can resume sexual activity as tolerated In general, you are encouraged to engage in a minimum of 30 minutes or more of moderate intensity physical activity, such as brisk walking, daily or at least 3 -4 times weekly BATHING Do not submerge the site into water (bath tub, hot tub, swimming pool) for 1 week. This can be a source for infection into the blood stream. You may shower after 24 hours SITE CARE: After 24 hours, you may remove the dressing and leave the site open to air. Keep the site clean and dry. Clean gently and pat dry. You can expect bruising and tenderness that gradually resolve within a week or two. Return to work as instructed per your physician Resume driving as instructed per physician Keep all scheduled follow up appointments Resume medications as instructed IMPORTANT: If prescribed a Platelet Aggregation Inhibitor such as, Plavix, Brilinta or Effient: Duration of therapy is minimum one year These medications are often used in combination with Aspirin in prevention of future heart attacks Never discontinue unless consult with your Victim Witness Administrator STROKE (CVA) Risk factors for a stroke are: Age, cigarette smoking, diabetes, excessive alcohol consumption, family history, high blood pressure, overweight, physical inactivity, prior stroke, heart attack, diagnosis of carotid artery stenosis or other artery disease. Warning signs: Sudden numbness or weakness of the face, arm or leg; especially on one side of the body, sudden confusion, trouble speaking or understanding, sudden trouble seeing in one or both eyes, sudden trouble walking, dizziness, loss of balance or coordination, sudden severe headache with no cause. Call 911 or go to the Emergency Room. CONGESTIVE HEART FAILURE: If you have been diagnosed with Congestive Heart Failure (CHF) and your symptoms return, make an appointment with your physician Weigh yourself daily. Notify your physician if you have a weight gain of two or more pounds in one day or five or more pounds in one week. If you experience any difficulty breathing, please call 911 BLEEDING: Although the risk of bleeding is minimal, it can happen. If you have any bleeding from the site, apply firm pressure above the puncture site for 10-15 minutes. If the bleeding does not stop, continue manual pressure and call 911 Contact your physician if: You develop a fever greater than 101 degrees Fahrenheit Your site becomes reddened or has any drainage You have an increase in pain or burning at the site or if a large knot forms at the site. If you experience chest pain, shortness of breath, dizziness, or extreme tiredness, stop the activity and rest. Please notify your physicians office if you experience any of these symptoms and they are not relieved by rest please call 911! - Diet and Activity Activity: increase activity as tolerated Diet: low fat, low cholesterol, low salt diet Hospital course: Mr. Nur is a 61 year old male with PMH of CAD, HTN, HLD, morbid obesity admitted for symptomatic bradycardia and syncope. He underwent nuclear stress test to rule out ischemia. He was found to have an abnormal stress test due to which he underwent LHC. LHC showed single vessel disease, s/p successful PTCA/ PEDRO LUIS to mid RCA, distal RCA, and PDA. Pt's BB has been on hold since hospitalization. He was noted to be hypertensive and his home medications have been adjusted. At this time pt is medically stable and has been cleared by cardiology for discharge. He will be discharged to home with follow up with PCP and cardiology after discharge. NO recurrent syncopal episodes were reported since hospitalization. - Time Spent with Patient Total time spent providing and/or coordinating discharge services: Greater than 30 minutes - Constitutional Vitals: Temp Pulse Resp BP Pulse Ox 97.9 F 73 16 151/81 97 04/05/17 11:21 04/05/17 11:21 04/05/17 11:21 04/05/17 14:35 04/05/17 11:21 General appearance: Present: cooperative, A&O X 3, morbidly obese, no acute distress, answers questions appropriately - Head Head exam: Present: atraumatic, normocephalic - Eye Eye exam: Present: conjuntiva pink, sclera anicteric - Respiratory Respiratory exam: Present: CTAB. Absent: accessory muscle use, rales, rhonchi, wheezes - Cardiovascular Cardiovascular exam: Present: RRR, +S1, +S2. Absent: diastolic murmur, gallop, rubs, systolic murmur - GI/Abdominal GI/Abdominal exam: Present: distended (obese ), normal bowel sounds, soft, no peritoneal signs. Absent: tenderness - Extremities Exam Extremities exam: Present: warm, radial pulses palpable and symmetrical. Absent : calf tenderness - Neurological Exam Neurological exam: Present: alert, oriented X3 - Psychiatric Psychiatric exam: Present: normal affect, normal mood
== END 2017-04-05 16:37 | disposition home or self-care (01) | DRG 247 ==
LOC: 2NENU 15:05 → EMEROO 15:05 → SUATTDRO 17:56 → 2NENU 18:31
PROVIDERS: ADMIT Internal Medicine Nephrology; ATTEND Internal Medicine

== ENCOUNTER 2018-01-31 14:13 | Observation (INO) ==
[2018-01-31] MEDS ORDERED: *HR* Heparin 5,000 UNIT/ML VIAL IVP PRN ×3 (18:27→19:18)
--- NOTE | 2018-01-31 18:38 | Internal Med History&Physical ---
Date of Encounter: 01/31/18 Time of Encounter: 18:27 Internal Medicine - H&P: HPI Chief complaint: Left arm weakness and numbness transfer [facility] Admitted From: Hospital to Hospital Transfer Plans for Post Hospital Care: Home History of present illness: Mr. Nur is a 62 year old male who was transferred from Hospital for chief complaint of left arm numbness and weakness onset was this morning states that he awoke with pain and left arm weakness and numbness that started at the top of his left shoulder and radiated all the way down to the tips of the fingers. he states that he has pins and needles feeling but denies any actual pain reports that 10 male at the bedside that his symptoms have resolved down to the distal forearm to the hand and fingers and that it is only depends and needle sensation he denies any weakness. Patient has significant past history for morbid obesity coronary artery disease with an [facility] on [id number] 2017 with stent placement. Family is at bedside and states that he has 12 stents placed. He currently is seen per her automobile salesman Dr. Sanchez who is in practice here at [facility]. It is reported that his troponin levels were elevated when he was lab work was completed at [facility] number was test results are not available for review at this time. Family and patient also reports that he had a negative CT scan of the head while his workup through the emergency room upper hospital. His home medications include amylin dye pain, aspirin 81 mg Lipitor 40 mg clonidine 0.1 mg twice a day 75 mg Lasix 20 mg twice a day Cozaar 100 mg daily metoprolol 12.5 mg twice a day, and dutasteride/Darling solution 0.50.4 daily for BPH. Patient will be admitted to the observation unit with cardiology consult, neuro consult, DVT prophylaxis with the start of a heparin drip, he will be given a cardiac diet, start his daily medications, we will hold his Plavix while he is on heparin, we will continue to monitor him on telemetry as well as do serial troponins, also we put in an order for consult to dietary due to morbid obesity, due to excess calories, and have consulted the also the Gator to try to get him scheduled a needle EMG of that left extremity. 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 He reports however it has never lasted this long Past Med Surg Social Fam HX - Past Medical History Medical history: atrial fibrillation, coronary artery disease, hyperlipidemia, hypertension, myocardial infarction, peripheral artery disease Additional medical history: SYNCOPE. BRADYCARDIA Psychiatric history: no psych history - Past Surgical History Surgical History: angioplasty/stent Additional surgical history: lung biopsy - Social History Smoking Status: Never smoker Smokeless Tobacco Status: Yes Alcohol use: none Drug use: none Internal Medicine - H&P: Meds Aspirin [Lo-Dose Aspirin EC] 81 mg PO DAILY 03/31/17 [History] Dutasteride/Tamsulosin HCl [Dutasteride-Tamsulosin 0.5-0.4] 1 cap PO DAILY 03/31/17 [History] Atorvastatin [Lipitor] 40 mg PO HS #30 tablet 04/05/17 [Rx] Clopidogrel [Plavix] 75 mg PO DAILY #30 tablet 04/05/17 [Rx] Furosemide [Lasix] 20 mg PO BID 01/10/18 [History] Losartan Potassium [Cozaar] 100 mg PO DAILY 01/10/18 [History] amLODIPine [Norvasc] 5 mg PO DAILY 01/10/18 [History] cloNIDine HCl [CloNIDine HCl] 0.1 mg PO BID 01/10/18 [History] hydrALAZINE [HydrALAZINE] 25 mg PO Q8H 01/10/18 [History] Metoprolol [Lopressor] 12.5 mg PO BID #30 tablet 01/11/18 [Rx] Allergy/AdvReac Type Severity Reaction Status Date / Time No Known Allergies Allergy Verified 03/31/17 15:06 All Systems PM: A 10-system review of systems was performed and is negative for pertinent fi ndings except as documented above in the HPI. - Constitutional Constitutional: as per HPI - EENT Eyes: no change in vision, no discharge, no pain, no photophobia Ears: no ear discharge, no ear pain, no tinnitus Nose, mouth and throat: no dysphagia, no nasal discharge, no neck pain, no sore throat - Breasts Breasts: as per HPI - Cardiovascular Cardiovascular ROS IM: as per HPI Additional comments: chronic periphrial pedal edema - Respiratory Respiratory: no cough, no dyspnea, no wheezing, no excessive phlegm production - Gastrointestinal Gastrointestinal: no abdominal pain, no diarrhea, no hematemesis, no hematochezia, no melena, no nausea, no vomiting - Genitourinary Genitourinary ROS male: as per HPI - Musculoskeletal Musculoskeletal ROS IM: as per HPI, no numbness, no tingling - Integumentary Integumentary IM: no rash, no unusual bruising - Neurological Neurological ROS: numbness, paresthesias, weakness Additional comments: left upper arm to tips of fingers, improving - Psychiatric Psychiatric: as per HPI Additional comments: hx of MANAN - Endocrine Endocrine IM: as per HPI - Hematologic/Lymphatic Hematologic/Lymphatic: no easy bruising - Allergic/Immunologic Allergic/Immunologic: as per HPI - Constitutional General appearance: Present: A&O X 3, morbidly obese, no acute distress Exam: 144.9 kg Will consult dietary for nutrition and weight loss strategies - Head Head exam: Present: atraumatic, normal inspection, normocephalic - Eye Eye exam: Present: EOMI, PERRL, conjuntiva pink, sclera anicteric Pupils: Present: PERRL - ENT ENT exam: Present: mucous membranes moist, normal exam - Neck Neck exam general surgery: Present: full ROM, supple, trachea midline. Absent: lymphadenopathy - Respiratory Respiratory exam: Present: CTAB. Absent: accessory muscle use, rales, rhonchi, wheezes - Cardiovascular Cardiovascular exam: Present: RRR, +S1, +S2. Absent: diastolic murmur, gallop, rubs, systolic murmur Additional comments: 2+ pitting pedal edema to knees bilateral lower ext . - Expanded Cardiovascular Exam Peripheral pulses: 2+: Posterior Tibialis (L), Posterior Tibialis (R), Dorsalis Pedis (L) PM, Dorsalis Pedis (R) PM - GI/Abdominal GI/Abdominal exam: Present: hernia, normal bowel sounds, soft Additional comments: large ventral easliy reducable hernia mid abdomen - Extremities Exam Extremities exam: Present: warm, radial pulses palpable and symmetrical. Absent: calf tenderness, cyanotic, pedal edema - Neurological Exam Neurological exam: Present: CN II-XII intact, normal gait, oriented X3, reflexes normal, no focal deficits, strengths equal and symetr throughout (dtr's 2+ upper and lower ext. , ). Absent: pronater drift, facial droop, speech deficit - Expanded Neurological Exam Patient oriented to: Present: person, place, time Speech: Present: fluid speech Cranial Nerves: EOM's intact PM: Normal, gag reflex PM: Normal, nystagmus PM: Normal, tongue deviation PM: Normal Cerebellar function: finger to nose: Normal, heel to zambrano: Normal, Romberg: Normal Upper motor neuron: Babinski sign: Normal, Jed neglect: Normal, pronator drift: Normal, sensory extinction: Normal Sensory exam: LE 2 point discrimination: Normal, lower extremity light touch: Normal, lower extremity pin prick: Normal, lower extremity temperature: Normal, UE 2 point discrimination: Normal, upper extremity light touch: Normal, upper extremity pin prick: Normal, upper extremity temperature: Normal Neuro motor strength exam: LUE: 4, RUE: 4, LLE: 4, RLE: 4 DTR: bicep (L): 2+, bicep (R): 2+, brachioradialis (L): 2+, brachioradialis (R): 2+, patellar (L): 2+, patellar (R): 2+ Coma Scale Eye Opening: Spontaneous Coma Scale Motor Response: Obeys Commands Coma Scale Verbal Response: Oriented Coma Scale Total: 15 - Skin Skin exam: Present: dry, intact - Assessment and plan (1) Left arm numbness Current Visit: Yes Status: Acute Assessment and plan: No neurological deficits noted on exam of the left upper extremity, patient continues to have sensations of pins and needles from the distal forearm all the way down to the fingertips, he does complain that he has become check syndrome most nights,. Going to also consult the orthopedic navigator as we are in hopes that we will be able to obtain a needle EMG during his hospital stay on that left arm to rule out any carpal tunnel syndrome which may answer for some of his symptomology. (2) DVT prophylaxis Current Visit: No Status: Acute Assessment and plan: We will continue DVT prophylaxis per protocol as well as heparin drip (3) CAD (coronary artery disease) Current Visit: No Status: Acute Assessment and plan: We will continue with telemetry monitoring, radiology consult and serial troponins, Qualifiers: Coronary Disease-Associated Artery/Lesion type: [place] artery [place] vs. transplanted heart: [place] heart Associated angina: without angina Qualified Code(s): I25.10 - Atherosclerotic heart disease of [place] coronary artery without angina pectoris (4) MANAN (obstructive sleep apnea) Current Visit: No Status: Chronic Assessment and plan: Patient will need to bring in his machine in for his CPAP (5) Morbid obesity with BMI of 40.0-44.9, adult Current Visit: No Status: Chronic Assessment and plan: BMI is greater than 44.9 with 144 kg of weight, have consulted dietary for nutritional counseling and weight loss discussion - Time Spent With Patient Total time spent is greater than 50% in coordination of care (as documented) at patient's floor/unit and/or counseling patient: less than 15 minutes
[2018-01-31] MEDS ORDERED: *HR* Heparin 5,000 UNIT/ML VIAL IVP ONE (19:18)
[2018-01-31] MEDS ORDERED: Heparin 25,000 UNIT/500 ML D5W 25,000 UNIT/500 ML BAG IVC SCH (19:30)
[2018-01-31] MEDS: hydrALAZINE 25 MG TABLET PO SCH (19:37)
[2018-01-31] MEDS: Furosemide 20 MG TABLET PO SCH (19:37)
[2018-01-31] MEDS: cloNIDine HCl 0.1 MG TABLET PO SCH (19:37)
[2018-01-31] MEDS: Finasteride 5 MG TABLET PO SCH (19:37)
[2018-01-31 19:57] LABS: Heparin anti-factor XA UFH 0.03 IU/mL (0.30-0.70)
[2018-01-31 19:58] LABS: Prothrombin Time 11.4 Seconds (9.4-12.1)
[2018-02-01 02:12] LABS: Basophils # 0.1 K/mcL (0.0-0.2); Basophils % 0.9 %; Eosinophils # 0.2 K/mcL (0.0-0.6); Eosinophils % 2.3 %; Hematocrit 44.8 % (37.5-50.1); Hemoglobin 15.4 g/dL (12.9-16.9); Immature Granulocytes % 0.3 % (0-4); Lymphocytes # 2.5 K/mcL (0.6-4.6); Lymphocytes % 37.7 %; Mean Corpuscular HGB Conc 34.4 g/dL (31.6-35.5); Mean Corpuscular Hemoglobin 31.5 pg (28.0-33.3); Mean Corpuscular Volume 91.6 fL (83.0-100.0); Mean Platelet Volume 9.8 fL (9.4-12.4); Monocytes # 0.4 K/mcL (0.0-1.3); Monocytes % 6.2 %; Neutrophils # 3.5 K/mcL (1.6-8.9); Platelet Count 178 K/mcL (140-400); Red Blood Count 4.89 M/mcL (4.19-5.50); Red Cell Distribution Width 12.5 % (11.5-14.5); Segmented Neutrophils % 52.6 %
[2018-02-01 02:20] LABS: INR 1.1
[2018-02-01 02:22] LABS: Activated Partial Thrombo Time 45.9 Seconds (26.0-36.0)
[2018-02-01 02:33] LABS: Alanine Aminotransferase 62 Units/L (7-52); Albumin 3.6 g/dL (3.5-5.7); Albumin/Globulin Ratio 1.1 (1.1-2.2); Alkaline Phosphatase 55 Units/L (34-104); Aspartate Amino Transferase 39 Units/L (13-39); BUN/Creatinine Ratio 16 (6-26); Bilirubin,Total 0.8 mg/dL (0.3-1.0); Blood Urea Nitrogen 17 mg/dL (8-23); Calcium 8.8 mg/dL (8.6-10.3); Carbon Dioxide 27 mEq/L (23-29); Chloride 102 mEq/L (98-107); Globulin 3.2 g/dL (2.4-3.5); Glucose 118 mg/dL (70-105); Osmolality,Calculated 289 (280-300); Potassium 3.2 mEq/L (3.5-5.1); Sodium 138 mEq/L (136-145); Total Protein 6.8 g/dL (6.4-8.9); eGFR For Non-African Americans > 60 (> 60)
[2018-02-01] MEDS: hydrALAZINE 25 MG TABLET PO SCH ×3 (02:33→19:09)
[2018-02-01 02:43] LABS: Troponin I 0.23 ng/mL (< 0.04)
[2018-02-01] MEDS: cloNIDine HCl 0.1 MG TABLET PO SCH ×2 (08:34→21:34)
[2018-02-01] MEDS: Aspirin 81 MG TAB.CHEW PO SCH (08:34)
[2018-02-01] MEDS: Furosemide 20 MG TABLET PO SCH ×2 (08:35→21:34)
[2018-02-01] MEDS ORDERED: DUTASTERIDE PO SCH (09:00)
[2018-02-01] MEDS ORDERED: TAMSULOSIN HCL PO SCH (09:00)
[2018-02-01] MEDS ORDERED: [UNRECOGNIZED DRUG - OTHER] PO SCH (09:00)
[2018-02-01] MEDS ORDERED: amLODIPine 5 MG TABLET PO SCH (09:00)
--- NOTE | 2018-02-01 09:56 | Cardiology Consult Note ---
<Lauri Villatoro - Last Filed: 02/01/18 09:50> Date of Encounter: 02/01/18 Time of Encounter: 09:50 Assessment and Plan (1) Elevated troponin Current Visit: Yes Status: Acute Elevated troponin at 0.23, 0.22 in male with h/o CAD and DM. Possible demand ischemia from elevated b/p verses NSTEMI. He underwent LHC 01/11/18 with PCI to the LCx artery. There was 60 % proximal RCA stenosis remaining at that time. FFR was 0.89. Stress test prior to LHC showed Inferior wall infarct with mild carli-infarct ischemia in the basal-mid inferolateral wall. Pharmacologic stress ECG is negative for ischemia at level of heart rate achieved. No appreciable change from baseline.Patient hypertensive throughout testing. Gated EF = 41%. There is transient ischemic dilatation. He denies chest pain. Left arm numbness is atypical for CAD. Discussed with Dr. Paredes, recommends adding imdur for known moderate CAD. We will hold norvasc with addition of imdur. Agree with TTE. Cardac rehab ordered at last visit and will be ordered out-pt. (2) CAD (coronary artery disease) Current Visit: No Status: Acute H/o TX and multiple PCI. Continue asa, plavix, statin, and bb. Imdur added. Qualifiers: Coronary Disease-Associated Artery/Lesion type: [place] artery [place] vs. transplanted heart: [place] heart Associated angina: without angina Qualified Code(s): I25.10 - Atherosclerotic heart disease of [place] coronary artery without angina pectoris (3) HTN (hypertension) Current Visit: No Status: Chronic Uncontrolled HTN. Imdur added. Consider adding norvasc back if needed. Qualifiers: Hypertension type: essential hypertension Qualified Code(s): I10 - Essential (primary) hypertension Discussion w patient/family: The assessment and plan as outlined above was discussed with the patient and/or family members who expressed understanding and agreement. All questions were answered. Thank you for involving us in the care of your patient. Please call with any questions. History of Present Illness Consult date: 02/01/18 Requesting physician: Erin Gramajo Consult reason: left arm numbness Chief complaint: Left arm numbness History of present illness: Mr. Nur is a 62 year old male with past medical history of CAD s/p multiple PCI most recently 01/10/18 to his dLCx artery. Also history of uncontrolled HTN, DM type II, and ICD in the past that was extracted. He presents with left arm numbness that started when he woke up yesterday. States that the numbness lasted all day. He denies weakness in his arm or pain. He reports having chest pain prior to his recent stent. Denies recurrent chest pain since that time. He underwent CT of the head showed lacunar infarcts but no acute findings, MRI should be considered, neuro consulted. He denies h/o CVA. His troponin was found to be elevated at 0.17 and 0.23, Cardiology consulted for evaluation. Past Med Surg Social Fam HX - Past Medical History Medical history: coronary artery disease, hyperlipidemia, hypertension, myocardial infarction, peripheral artery disease Additional medical history: SYNCOPE. BRADYCARDIA Psychiatric history: no psych history - Past Surgical History Surgical History: angioplasty/stent Additional surgical history: lung biopsy - Social History Smoking Status: Never smoker Smokeless Tobacco Status: Yes Alcohol use: none Drug use: none Medications and Allergies Aspirin [Lo-Dose Aspirin EC] 81 mg PO DAILY 03/31/17 [History] Dutasteride/Tamsulosin HCl [Dutasteride-Tamsulosin 0.5-0.4] 1 cap PO DAILY 03/31/17 [History] Atorvastatin [Lipitor] 40 mg PO HS #30 tablet 04/05/17 [Rx] Clopidogrel [Plavix] 75 mg PO DAILY #30 tablet 04/05/17 [Rx] Losartan Potassium [Cozaar] 100 mg PO DAILY 01/10/18 [History] amLODIPine [Norvasc] 5 mg PO DAILY 01/10/18 [History] cloNIDine HCl [CloNIDine HCl] 0.1 mg PO BID 01/10/18 [History] hydrALAZINE [HydrALAZINE] 25 mg PO Q8H 01/10/18 [History] Metoprolol [Lopressor] 12.5 mg PO BID #30 tablet 01/11/18 [Rx] Furosemide [Lasix] 40 mg PO DAILY 02/01/18 [History] Allergy/AdvReac Type Severity Reaction Status Date / Time No Known Allergies Allergy Verified 02/01/18 11:03 All Systems Review: The remainder of the systems were reviewed and are negative Physical Examination Vital Signs, Last 4 Hours Temp Pulse Resp BP Pulse Ox 02/01/18 07:02 97.6 F 65 16 178/92 94 General: Conversant, No Apparent Distress HEENT: Atraumatic, Normocephaly, Mucus Membranes Moist Neck: No JVD, Normal carotid pulses Cardiac: Reg Rate and Rhythm, Normal S1 and S2, No Murmur Lungs: Normal Breath Sounds, No Wheeze, Rales, Rhonchi Neuro: Alert and responsive, No focal deficits noted Abdomen: Soft, Non-Tender Skin: No rashes noted on visualized skin Musculoskeletal: No Chest Wall Tenderness Extremities: No Clubbing, No Cyanosis, No Edema, Normal Pulses Results 02/01/18 01:56 02/01/18 01:56 Lab Results 01/31/18 02/01/18 02/01/18 19:31 01:56 01:56 WBC 6.6 Hgb 15.4 Hct 44.8 Plt Count 178 INR 1.0 1.1 APTT 45.9 H Sodium Potassium Chloride Carbon Dioxide BUN Creatinine Glucose Calcium Total Bilirubin AST ALT Alkaline Phosphatase Troponin I 02/01/18 02/01/18 01:56 08:21 WBC Hgb Hct Plt Count INR APTT Sodium 138 Potassium 3.2 L Chloride 102 Carbon Dioxide 27 BUN 17 Creatinine 1.06 Glucose 118 H Calcium 8.8 Total Bilirubin 0.8 AST 39 ALT 62 H Alkaline Phosphatase 55 Troponin I 0.23 H* 0.22 H* - Imaging and Cardiology Stress Test: report reviewed Cardiac cath: report reviewed - EKG Interpretation EKG results cardiology: personally reviewed Consult Discharge Plan - Plan Referrals: NONE,PCP [Primary Care Provider] - <Lena A - Last Filed: 02/01/18 14:50> Date of Encounter: 02/01/18 - Attending Attestation I have personally performed a face to face evaluation on this patient. I have reviewed and agree with the care plan as documented by the [employer] OFFICER. History and Exam by me shows: Significant history of CAD, which recent left heart catheter with PCI to distal left circumflex, now presenting with left arm numbness without motor weakness in the setting of uncontrolled hypertension. CT head negative for acute infarct. Currently chest pain-free and no left arm numbness at this time. Plan: Needs better hypertension control. Add Imdur 60 mg daily Risk factor modification emphasized. Agree with medication recommendations below. Needs close follow-up with PCP and pharmacy sales assistant. Thanks, Del Paredes MD Assessment and Plan Discussion w patient/family: The assessment and plan as outlined above was discussed with the patient and/or family members who expressed understanding and agreement. All questions were answered. Thank you for involving us in the care of your patient. Please call with any questions. History of Present Illness History of present illness: Mr. Nur is a 62 year old male All Systems Review: The remainder of the systems were reviewed and are negative Physical Examination Vital Signs, Last 4 Hours Temp Pulse Resp BP Pulse Ox 02/01/18 11:56 98 F 62 20 170/98 96 Results 02/01/18 01:56 02/01/18 01:56 Lab Results 01/31/18 02/01/18 02/01/18 19:31 01:56 01:56 WBC 6.6 Hgb 15.4 Hct 44.8 Plt Count 178 INR 1.0 1.1 APTT 45.9 H Sodium Potassium Chloride Carbon Dioxide BUN Creatinine Glucose Calcium Total Bilirubin AST ALT Alkaline Phosphatase Troponin I 02/01/18 02/01/18 02/01/18 01:56 08:21 13:46 WBC Hgb Hct Plt Count INR APTT Sodium 138 Potassium 3.2 L Chloride 102 Carbon Dioxide 27 BUN 17 Creatinine 1.06 Glucose 118 H Calcium 8.8 Total Bilirubin 0.8 AST 39 ALT 62 H Alkaline Phosphatase 55 Troponin I 0.23 H* 0.22 H* 0.19 H*
[2018-02-01] MEDS: Isosorbide MONOnitrate (24 HR) 30 MG TAB.ER.24H PO SCH (11:15)
--- NOTE | 2018-02-01 12:59 | Discharge Summary ---
<Anil Purdy - Last Filed: 02/01/18 17:26> Orders not resulted at time of discharge: Pending orders 02/01/18 08:36 EV echocardiogram Routine Date of Encounter: 02/01/18 - Discharge Diagnosis (1) Left arm numbness Priority: Primary Status: Acute (2) Bradycardia Priority: Secondary Status: Acute (3) CAD (coronary artery disease) Priority: Secondary Status: Chronic Qualifiers: Coronary Disease-Associated Artery/Lesion type: [place] artery [place] vs. transplanted heart: [place] heart Associated angina: without angina Qualified Code(s): I25.10 - Atherosclerotic heart disease of [place] coronary artery without angina pectoris (4) MANAN (obstructive sleep apnea) Priority: Secondary Status: Chronic (5) Morbid obesity with BMI of 40.0-44.9, adult Priority: Secondary Status: Chronic Hospital course: I have re-performed and reviewed the history documented by the medical student, and I confirm its accuracy except as noted below. Noted patient previously on clonidine, but has not taken this for months. When I saw patient numbness had completely resolved and only had minimal tingling in finger tips. He presented as he was concerned for CVA with his history of CAD and multiple stents. Patient has remained stable throughout admission, with joint decision making we are planning for discharge following echo. Can follow up outpatient with cardiology if any concerns on echo. Discharge discussed with: patient - Time Spent with Patient Total time spent providing and/or coordinating discharge services: Less than 30 minutes (25) - Discharge Medications Prescriptions: RX: Isosorbide MONOnitrate (24 HR) [Imdur] 30 mg PO DAILY 14 Days #14 tab.er.24h Home Medications: RX: Aspirin [Lo-Dose Aspirin EC] 81 mg PO DAILY 03/31/17 [History] RX: Dutasteride/Tamsulosin HCl [Dutasteride-Tamsulosin 0.5-0.4] 1 cap PO DAILY 03/31/17 [History] RX: Atorvastatin [Lipitor] 40 mg PO HS #30 tablet 04/05/17 [Rx] RX: Clopidogrel [Plavix] 75 mg PO DAILY #30 tablet 04/05/17 [Rx] RX: Losartan Potassium [Cozaar] 100 mg PO DAILY 01/10/18 [History] RX: hydrALAZINE [HydrALAZINE] 25 mg PO Q8H 01/10/18 [History] RX: Metoprolol [Lopressor] 12.5 mg PO BID #30 tablet 01/11/18 [Rx] RX: Furosemide [Lasix] 40 mg PO DAILY 02/01/18 [History] RX: Isosorbide MONOnitrate (24 HR) [Imdur] 30 mg PO DAILY 14 Days #14 tab.er.24h 02/01/18 [Rx] Allergies/Adverse Reactions: Allergy/AdvReac Type Severity Reaction Status Date / Time No Known Allergies Allergy Verified 02/01/18 11:03 Date of admission: 01/31/18 16:25 Primary care physician: PCP NONE Consults: 01/31/18 18:23 Consult to Cardiology [CONS] Routine Comment: Consulting Provider: Card[facility] Reason for Consult: left arm numbness CAD Time Notified: 18:24 Call Completed: No Discharging clinician: Jb Clifton Anticipated date of discharge: 02/01/18 - Constitutional Vitals: Temp Pulse Resp BP Pulse Ox 97.9 F 60 18 140/74 97 02/01/18 14:57 02/01/18 14:57 02/01/18 14:57 02/01/18 14:57 02/01/18 14:57 General appearance: Present: cooperative, A&O X 3, morbidly obese, no acute distress, answers questions appropriately - Head Head exam: Present: atraumatic, normocephalic - Eye Eye exam: Present: conjuntiva pink, sclera anicteric - Neck Neck exam general surgery: Present: supple, trachea midline - Respiratory Respiratory exam: Present: CTAB. Absent: accessory muscle use, rales, rhonchi, wheezes - Cardiovascular Cardiovascular exam: Present: RRR, +S1, +S2. Absent: diastolic murmur, gallop, rubs, systolic murmur - GI/Abdominal GI/Abdominal exam: Present: normal bowel sounds, soft, no peritoneal signs. Absent: distended, tenderness - Extremities Exam Extremities exam: Present: pedal edema (trace), warm. Absent: calf tenderness, cyanotic - Neurological Exam Neurological exam: Present: alert, oriented X3, no focal deficits. Absent: facial droop, speech deficit - Skin Skin exam: Present: dry, intact - Patient Status Disposition: Home, Self-Care Condition: Good Functional capacity at discharge: independent ambulation Overall status at discharge: patient is back to baseline - Discharge Instructions Instructions: Carpal Tunnel Syndrome Exercises (GEN), Carpal Tunnel Syndrome (DC) Follow Up With: Rico Sanchez DO [Partnered Physician] - 02/11/18 11:30 am (has appt.) Additional Instructions: Please take medications as prescribed. Recommend close follow up with Primary Care Provider. Plan to complete cardiac rehab as outpatient. Please return or seek medical care if you have new or worsening symptoms such as chest pain, shortness of breath, confusion, weakness, numbness, etc. - Diet and Activity Activity: increase activity as tolerated Diet: advance to your usual diet <Evette Foreman - Last Filed: 02/01/18 18:02> - NOTES TO OUTPATIENT PROVIDER Notes to Outpatient Provider: Admitted for left arm numbness, resolved, rec outpatient EMG; Cardiology rec add imdur; d/c norvasc; pharm noted pt not taking clonidine Orders not resulted at time of discharge: Pending orders 02/01/18 08:36 EV echocardiogram Routine 02/01/18 14:00 Troponin I Timed Date of Encounter: 02/01/18 Time of Encounter: 08:10 - Discharge Diagnosis (1) Left arm numbness Priority: Primary Status: Acute (2) CAD (coronary artery disease) Priority: Secondary Status: Chronic Qualifiers: Coronary Disease-Associated Artery/Lesion type: [place] artery [place] vs. transplanted heart: [place] heart Associated angina: without angina Qualified Code(s): I25.10 - Atherosclerotic heart disease of [place] coronary artery without angina pectoris (3) MANAN (obstructive sleep apnea) Priority: Secondary Status: Chronic (4) Morbid obesity with BMI of 40.0-44.9, adult Priority: Secondary Status: Chronic (5) DVT prophylaxis Priority: Secondary Status: Acute Hospital course: Mr. Nur is a 62 year old male. Hospital day 1. Pt has a chroninc h/o a-fib, CAD/PAD, HTN, HLD, previous [place], and a total of 12 cardiac stents. He initially presented to [facility] c/o left arm numbness and weakness from the top of his shoulder down to his fingertips. He had elevated troponin levels and a negative CT of the head before he was transferred to [facility]. Pt states numbness/tingling reduced to left distal forearm to fingertips yesterday. Recommended EMG to be scheduled outpatient to r/o carpel tunnel syndrome. Cardiology was consulted and stated patient's left arm numbness is atypical for CAD, they recommended continue asa, plavix, statin and beta karen, adding imdur and holding norvasc, recommended cardiac rehab for outpatient. Potassium levels were low at 3.2 and were repleted with potassium chloride 40meq PO. Troponin levels trending downward from 0.23-->0.22-->0.19(most recent) on 02/01/18. Pt scheduled for echo later today. Today pt was seen and admitted to numbness and tingling only in his left fingertips. He states he feels much better and believes that the cause to his left arm numbness was due to sleeping position the night before. He denies weakness, loss of sensation, H/A, vision changes, NVD, constipation, abdominal pain, cough, wheezing, SOB, chest pain/pressure, diaphoresis, fever and chills. Discharge discussed with: patient - Time Spent with Patient Total time spent providing and/or coordinating discharge services: Date of admission: 01/31/18 16:25 Primary care physician: PCP NONE Consults: 01/31/18 18:23 Consult to Cardiology [CONS] Routine Comment: Consulting Provider: Cardiology [place] Reason for Consult: left arm numbness CAD Time Notified: 18:24 Call Completed: No - Constitutional Vitals: Temp Pulse Resp BP Pulse Ox 98 F 62 20 170/98 96 02/01/18 11:56 02/01/18 11:56 02/01/18 11:56 02/01/18 11:56 02/01/18 11:56 General appearance: Present: A&O X 3, morbidly obese, no acute distress - Respiratory Respiratory exam: Present: CTAB. Absent: wheezes - Cardiovascular Cardiovascular exam: Present: RRR, +S1, +S2. Absent: diastolic murmur, rubs, systolic murmur - GI/Abdominal GI/Abdominal exam: Present: normal bowel sounds, soft. Absent: distended, tenderness - Extremities Exam Additional comments: Mild bilateral leg edema - Expanded Neurological Exam Cranial Nerves: EOM's intact PM: Normal Sensory exam: upper extremity light touch: Normal, upper extremity pin prick: Normal Neuro motor strength exam: LUE: 5, RUE: 5 <Jb Clifton - Last Filed: 02/02/18 08:11> Date of Encounter: 02/01/18 Time of Encounter: 10:10 - Discharge Diagnosis (1) DVT prophylaxis Status: Acute (2) CAD (coronary artery disease) Status: Chronic Qualifiers: Coronary Disease-Associated Artery/Lesion type: [place] artery [place] vs. transplanted heart: [place] heart Associated angina: without angina Qualified Code(s): I25.10 - Atherosclerotic heart disease of [place] coronary artery without angina pectoris (3) MANAN (obstructive sleep apnea) Status: Chronic (4) Morbid obesity with BMI of 40.0-44.9, adult Status: Chronic (5) Left arm numbness Status: Acute Hospital course: Mr. Nur is a 62 year old male - Time Spent with Patient Total time spent providing and/or coordinating discharge services: Less than 30 minutes (15 min) Date of admission: 01/31/18 16:25 Primary care physician: PCP NONE Consults: 01/31/18 18:23 Consult to Cardiology [CONS] Routine Comment: Consulting Provider: Card[facility] Reason for Consult: left arm numbness CAD Time Notified: 18:24 Call Completed: No Discharging clinician: Jb Clifton Anticipated date of discharge: 02/02/18 - Constitutional Vitals: Temp Pulse Resp BP Pulse Ox 98 F 71 15 174/101 95 02/02/18 01:00 02/02/18 07:16 02/02/18 01:00 02/02/18 07:16 02/02/18 01:00 General appearance: Present: A&O X 3, answers questions appropriately Exam: . - Neck Neck exam general surgery: Present: supple, trachea midline. Absent: lymphadenopathy - Respiratory Respiratory exam: Present: CTAB. Absent: accessory muscle use, rales, rhonchi, wheezes - Cardiovascular Cardiovascular exam: Present: RRR, +S1, +S2. Absent: diastolic murmur, gallop, rubs, systolic murmur - Extremities Exam Extremities exam: Present: pedal edema, warm, radial pulses palpable and symmetrical. Absent: calf tenderness, cyanotic - Neurological Exam Neurological exam: Present: CN II-XII intact, oriented X3, no focal deficits, strengths equal and symetr throughout. Absent: facial droop, speech deficit - Patient Status Functional capacity at discharge: independent ambulation Overall status at discharge: patient is progressing back to baseline - Diet and Activity Activity: as per physical therapy Diet: advance to your usual diet - Attending Attestation I saw evaluated and examined this patient and my medical decision-making was reviewed with the Resident Physician, Anil Purdy and medical student. I agree with the documented findings, disposition and treatment plan as described except to any changes set forth below. We independently had [id number] contact with the patient. 62-year-old male patient with history of coronary artery disease with recent left heart catheterization who presented to the ER with complaints of left upper extremity numbness and tingling. Patient had apparently slept on that hand prior to onset of symptoms but given his recent stent, patient was observed in the hospital. He had left heart catheterization last month and was found to have severe one vessel coronary artery disease. He underwent PTCA with drug- eluting stent to the distal circumflex at that time. 2% stenosis in proximal RCA patient also had 60% stenosis in the proximal RCA and that time. As such cardiology was consulted. Patient did have troponin elevation and was started on IV heparin. Cardiology evaluated patient and recommended no need for any further intervention at this time. They did recommend 2-D echocardiogram which is currently pending. Patient has not had any chest pain. His numbness and tingling in his left upper extremity are resolving. Patient can follow-up with neurology as outpatient if this continues to look for any signs of carpal tunnel syndrome. Patient will be discharged once his echocardiogram has been completed. Addendum entered and electronically signed by Anil Purdy DO 02/05/18 15:03:
[2018-02-01] MEDS: Finasteride 5 MG TABLET PO SCH (21:34)
[2018-02-02] MEDS: hydrALAZINE 25 MG TABLET PO SCH (02:09)
[2018-02-02] MEDS: Isosorbide MONOnitrate (24 HR) 30 MG TAB.ER.24H PO SCH (09:06)
[2018-02-02] MEDS: Aspirin 81 MG TAB.CHEW PO SCH (09:06)
[2018-02-02] MEDS: cloNIDine HCl 0.1 MG TABLET PO SCH (09:06)
[2018-02-02] MEDS: Furosemide 20 MG TABLET PO SCH (09:06)
[2018-02-02 09:08] VITALS: BP 167/97
--- NOTE | 2018-02-02 11:25 | Event Note ---
Date of Encounter: 02/02/18 Time of Encounter: 11:24 - Cardiology Event Note TTE resulted--LVEF 55-60%. Mildly dilated left ventricle. Mild cLVH. Mild LVDD. Normal RV structure and function. Mildly sclerotic AV leaflets. Unable to estimate RVSP due to lack of TR jet. No further inpt cardiac workup warranted. Cardiology signing off. Reconsult PRN. Will coordinate outpt follow-up.
--- NOTE | 2018-02-02 11:31 | Internal Med Progress Note ---
<LeaEssence E - Last Filed: 02/02/18 11:27> Hospitalist Progress Note - Encounter Date of Encounter: 02/02/18 Time of Encounter: 09:00 - Subjective Interval History: Mr. Nur was seen at bedside today. No acute distress. HE states his arm numbness and tingling has fully subsided and he is ready to go home. He states he does not have any pain at this time - Exam Vitals: Temp Pulse Resp BP Pulse Ox 98.2 F 92 18 167/97 96 02/02/18 09:00 02/02/18 09:00 02/02/18 09:00 02/02/18 09:00 02/02/18 09:00 Exam: General: AAOx3, answers questions appropriately Heart: RRR, no murmurs, rubs, or gallops Pulm: CTAB, no wheezes, no rhonchi Extremities: 2+ pitting to mid calf, venous stasis changes to both lower extremities Skin: warm, dry, intact - Assessment and Plan (1) Left arm numbness Status: Resolved Assessment and Plan: Patients sensation of pins and needles in his left arm have totally subsided. HEs tates he feel sback to normal now. (2) CAD (coronary artery disease) Status: Chronic Assessment and Plan: Troponins decreased, heparin drip stopped. Outpatient cardiology follow-up needed (3) MANAN (obstructive sleep apnea) Status: Chronic Assessment and Plan: patient brought home cpap last night continue home cpap use DVT Prophylaxis: previously on heparin drip, discharging today, up at [facility] - Time Spent with Patient Total time spent is greater than 50% in coordination of care (as documented) at patient's floor/unit and/or counseling patient: Plan of Care Discussed with: patient Internal Medicine: Result - Labs CBC & Chem 7: 02/01/18 01:56 02/01/18 01:56 Labs: Cardiac Enzymes 02/01/18 Range/Units 13:46 Troponin I 0.19 H* (< 0.04) ng/mL - ABG Interpretation ABG results: PT/INR, D-dimer PT 12.0 Seconds (9.4-12.1) 02/01/18 01:56 - Impressions Impressions Echocardiogram 02/01/18 08:36 Impressions: LVEF 55-60%. Mildly dilated left ventricle. Mild concentric left ventricular hypertrophy. Mild left ventricular diastolic dysfunction. Normal right ventricular structure and function. Mildly sclerotic aortic valve leaflets. Unable to estimate RVSP due to lack of TR jet. Left Ventricular Wall Motion: Rest Echo Findings All wall segments showed normal motion. Findings: Study Quality * Technically adequate exam. ECG Findings * Normal sinus rhythm. Left Ventricle * LVEF 55-60%. * Mildly dilated left ventricle. * Mild concentric left ventricular hypertrophy. * Mild left ventricular diastolic dysfunction. Right Ventricle * Normal right ventricular structure and function. Left Atrium * Normal left atrial size. Right Atrium * Normal right atrial size. Interatrial Septum * No evidence of PFO by color Doppler. Aortic Valve * Trileaflet aortic valve. * Mildly sclerotic aortic valve leaflets. * No aortic regurgitation. * No aortic stenosis. Mitral Valve * Normal mitral valve structure. * No mitral regurgitation. * No mitral stenosis. Tricuspid Valve * Trace tricuspid regurgitation. * Unable to estimate RVSP due to lack of TR jet. * No tricuspid stenosis. * Normal tricuspid valve structure. Pulmonic Valve * Pulmonic valve is not well visualized. Aorta * Normally sized aortic root. Pericardium * The pericardium appears normal. IVC * Normal IVC dimensions and inspiratory collapse. Pulmonary Artery * Normal visualized portions of the main pulmonary artery. Consult Discharge Plan - Plan Instructions: Isosorbide Mononitrate (By mouth), Carpal Tunnel Syndrome Exercises (GEN), Cardiac Stress Test (DC), Carpal Tunnel Syndrome (DC), Chronic Hypertension (DC), Cardiac Rehabilitation (DC), Cardiac Rehabilitation (GEN) Additional Instructions: Please take medications as prescribed. Recommend close follow up with Primary Care Provider. Plan to complete cardiac rehab as outpatient. Please return or seek medical care if you have new or worsening symptoms such as chest pain, shortness of breath, confusion, weakness, numbness, etc. Referrals: Rico Sanchez DO [Partnered Physician] - 02/11/18 11:30 am (has appt.) Prescriptions: Isosorbide MONOnitrate (24 HR) [Imdur] 30 mg PO DAILY 14 Days #14 tab.er.24h <Jb Clifton - Last Filed: 02/02/18 13:29> Hospitalist Progress Note - Encounter Date of Encounter: 02/02/18 Time of Encounter: 10:20 - Exam Vitals: Temp Pulse Resp BP Pulse Ox 98.2 F 92 18 167/97 96 02/02/18 09:00 02/02/18 09:00 02/02/18 09:00 02/02/18 09:00 02/02/18 09:00 - Assessment and Plan (1) DVT prophylaxis Status: Acute (2) CAD (coronary artery disease) Status: Chronic (3) MANAN (obstructive sleep apnea) Status: Chronic (4) Morbid obesity with BMI of 40.0-44.9, adult Status: Chronic (5) Left arm numbness Status: Resolved - Time Spent with Patient Total time spent is greater than 50% in coordination of care (as documented) at patient's floor/unit and/or counseling patient: Internal Medicine: Result - Labs CBC & Chem 7: 02/01/18 01:56 02/01/18 01:56 Labs: Cardiac Enzymes 02/01/18 Range/Units 13:46 Troponin I 0.19 H* (< 0.04) ng/mL - ABG Interpretation ABG results: PT/INR, D-dimer PT 12.0 Seconds (9.4-12.1) 02/01/18 01:56 - Impressions Impressions Echocardiogram 02/01/18 08:36 Impressions: LVEF 55-60%. Mildly dilated left ventricle. Mild concentric left ventricular hypertrophy. Mild left ventricular diastolic dysfunction. Normal right ventricular structure and function. Mildly sclerotic aortic valve leaflets. Unable to estimate RVSP due to lack of TR jet. Left Ventricular Wall Motion: Rest Echo Findings All wall segments showed normal motion. Findings: Study Quality * Technically adequate exam. ECG Findings * Normal sinus rhythm. Left Ventricle * LVEF 55-60%. * Mildly dilated left ventricle. * Mild concentric left ventricular hypertrophy. * Mild left ventricular diastolic dysfunction. Right Ventricle * Normal right ventricular structure and function. Left Atrium * Normal left atrial size. Right Atrium * Normal right atrial size. Interatrial Septum * No evidence of PFO by color Doppler. Aortic Valve * Trileaflet aortic valve. * Mildly sclerotic aortic valve leaflets. * No aortic regurgitation. * No aortic stenosis. Mitral Valve * Normal mitral valve structure. * No mitral regurgitation. * No mitral stenosis. Tricuspid Valve * Trace tricuspid regurgitation. * Unable to estimate RVSP due to lack of TR jet. * No tricuspid stenosis. * Normal tricuspid valve structure. Pulmonic Valve * Pulmonic valve is not well visualized. Aorta * Normally sized aortic root. Pericardium * The pericardium appears normal. IVC * Normal IVC dimensions and inspiratory collapse. Pulmonary Artery * Normal visualized portions of the main pulmonary artery. - Attending Attestation I saw evaluated and examined this patient and my medical decision-making was reviewed with the Resident Physician, Essence Tate. I agree with the documented findings, disposition and treatment plan as described except to any changes set forth below. We independently had [id number] contact with the patient. Patient is feeling much better today. Denies any chest pain. His left upper extremity numbness and tingling has resolved. No shortness of breath. Underwent 2-D echocardiogram yesterday which showed EF of 55-60%. At this time he is stable to be discharged home and will follow up with cardiology as outpatient. On exam, patient is awake and alert. Heart sounds are normal. Breath sounds a re normal. Does have mild pedal edema. Left arm numbness/tingling: No resolved. Follow-up outpatient with PCP. Consider neurology evaluation with EMG to rule out carpal tunnel syndrome. Coronary artery disease: Continue aspirin, Plavix. Low risk for complications at this time ____ <Essence Tate E - Last Filed: 02/02/18 11:27> (2) CAD (coronary artery disease) Qualifiers: Coronary Disease-Associated Artery/Lesion type: [place] artery [place] vs. transplanted heart: [place] heart Associated angina: without angina Qualified Code(s): I25.10 - Atherosclerotic heart disease of [place] coronary artery without angina pectoris <Jb Clifton - Last Filed: 02/02/18 13:29> (2) CAD (coronary artery disease) Qualifiers: Coronary Disease-Associated Artery/Lesion type: [place] artery [place] vs. transplanted heart: [place] heart Associated angina: without angina Qualified Code(s): I25.10 - Atherosclerotic heart disease of [place] coronary artery without angina pectoris
== END 2018-02-02 11:52 | disposition home or self-care (01) ==
LOC: 2NENU → SUATTDRO 16:25
PROVIDERS: ADMIT Internal Medicine; ATTEND Internal Medicine

== ENCOUNTER 2019-06-05 19:10 | Inpatient (IN) ==
[2019-06-05] MEDS ORDERED: *HR* Heparin 5,000 UNIT/ML VIAL IVP PRN ×3 (19:21→19:50)
[2019-06-05] MEDS ORDERED: *HR* Ticagrelor 90 MG TABLET PO ONE (19:21)
[2019-06-05] MEDS ORDERED: *HR* Heparin 5,000 UNIT/ML VIAL IVP ONE (19:21)
[2019-06-05] MEDS ORDERED: 0.9 % Sodium Chloride 1,000 ML ONE ×3 (19:26→19:52)
[2019-06-05] MEDS ORDERED: Ondansetron 4 MG/2 ML VIAL IVP ONE (19:30)
[2019-06-05] MEDS ORDERED: *HR* FentaNYL (PF) 100 MCG/2 ML VIAL IVP ONE (19:30)
[2019-06-05 19:40] LABS: INR 1.1; Prothrombin Time 12.8 Seconds (9.4-12.1)
[2019-06-05 19:43] LABS: Activated Partial Thrombo Time 32.5 Seconds (26.0-36.0)
[2019-06-05 19:45] LABS: Basophils # 0.1 K/mcL (0.0-0.2); Basophils % 0.7 %; Eosinophils # 0.1 K/mcL (0.0-0.6); Hematocrit 47.7 % (37.5-50.1); Hemoglobin 16.8 g/dL (12.9-16.9); Immature Granulocytes % 0.2 % (0-4); Lymphocytes # 1.6 K/mcL (0.6-4.6); Lymphocytes % 17.8 %; Mean Corpuscular HGB Conc 35.2 g/dL (31.6-35.5); Mean Corpuscular Hemoglobin 32.1 pg (28.0-33.3); Mean Platelet Volume 9.5 fL (9.4-12.4); Monocytes # 0.4 K/mcL (0.0-1.3); Monocytes % 4.7 %; Platelet Count 178 K/mcL (140-400); Red Blood Count 5.24 M/mcL (4.19-5.50); Red Cell Distribution Width 12.3 % (11.5-14.5); Segmented Neutrophils % 75.6 %; White Blood Count 9.2 K/mcL (4.3-11.1)
[2019-06-05] MEDS ORDERED: *HR* FentaNYL (PF) 100 MCG/2 ML VIAL ONE (19:45)
[2019-06-05] MEDS ORDERED: *HR* Midazolam HCl 2 MG/2 ML VIAL ONE (19:45)
[2019-06-05] MEDS ORDERED: Nitroglycerin 1,000 MCG/10 ML VIAL IV ONE (19:45)
[2019-06-05] MEDS ORDERED: *HR* Heparin 10,000 UNIT/10 ML VIAL ONE (19:45)
[2019-06-05] MEDS ORDERED: ISOVUE-370 200 ML INFUS..BTL ONE (19:45)
[2019-06-05] MEDS ORDERED: Heparin 1,000 UNITS/500 mL 500 ML ONE (19:45)
[2019-06-05] MEDS ORDERED: Tirofiban 12.5 MG/250ML 12.5 MG/250 ML BAG IVC SCH (20:00)
[2019-06-05] MEDS ORDERED: Tirofiban 12.5 MG/250ML 12.5 MG/250 ML BAG ONE (20:14)
[2019-06-05 20:15] LABS: Heparin anti-factor XA UFH < 0.04 IU/mL (0.30-0.70)
[2019-06-05 20:18] LABS: BUN/Creatinine Ratio 14 (6-26); Blood Urea Nitrogen 18 mg/dL (8-23); Calcium 9.2 mg/dL (8.6-10.3); Carbon Dioxide 28 mEq/L (23-29); Chloride 99 mEq/L (98-107); Glucose 155 mg/dL (70-105); Osmolality,Calculated 289 (280-300); Potassium 3.5 mEq/L (3.5-5.1); Sodium 137 mEq/L (136-145); Troponin I 0.98 ng/mL (< 0.04); eGFR For African Americans > 60 (> 60); eGFR For Non-African Americans 58 (> 60)
[2019-06-05] MEDS ORDERED: Nitroglycerin Spray 4.9 GM BOTTLE ONE (20:45)
[2019-06-05] MEDS: Heparin 25,000 UNIT/250 ML D5W 25,000 UNIT/250 ML IV.SOLN IVC SCH (22:18)
[2019-06-05] MEDS: Furosemide 40 MG TABLET PO SCH (22:25)
[2019-06-06 05:57] LABS: Basophils # 0.1 K/mcL (0.0-0.2); Basophils % 0.7 %; Eosinophils # 0.1 K/mcL (0.0-0.6); Eosinophils % 1.2 %; Hematocrit 48.8 % (37.5-50.1); Hemoglobin 16.7 g/dL (12.9-16.9); Immature Granulocytes % 0.2 % (0-4); Lymphocytes # 1.9 K/mcL (0.6-4.6); Lymphocytes % 23.9 %; Mean Corpuscular HGB Conc 34.2 g/dL (31.6-35.5); Mean Corpuscular Hemoglobin 31.1 pg (28.0-33.3); Mean Corpuscular Volume 90.9 fL (83.0-100.0); Mean Platelet Volume 9.1 fL (9.4-12.4); Monocytes # 0.5 K/mcL (0.0-1.3); Monocytes % 6.6 %; Neutrophils # 5.4 K/mcL (1.6-8.9); Nucleated Red Blood Cells 0.6 /100 WBC (0); Platelet Count 188 K/mcL (140-400); Red Blood Count 5.37 M/mcL (4.19-5.50); Red Cell Distribution Width 12.4 % (11.5-14.5); Segmented Neutrophils % 67.4 %
[2019-06-06 06:19] LABS: BUN/Creatinine Ratio 15 (6-26); Blood Urea Nitrogen 15 mg/dL (8-23); Calcium 9.1 mg/dL (8.6-10.3); Carbon Dioxide 28 mEq/L (23-29); Chloride 99 mEq/L (98-107); Glucose 131 mg/dL (70-105); Osmolality,Calculated 287 (280-300); Potassium 2.7 mEq/L (3.5-5.1); Sodium 137 mEq/L (136-145); eGFR For African Americans > 60 (> 60); eGFR For Non-African Americans > 60 (> 60)
[2019-06-06] MEDS ORDERED: Perflutren Lipid Microsphere 1.3 ML in 0.9 % Sodium Chloride 8.7 ML IVP ONE (07:37)
[2019-06-06] MEDS: *HR* Ticagrelor 90 MG TABLET PO SCH ×2 (08:39→20:12)
[2019-06-06] MEDS: amLODIPine 5 MG TABLET PO SCH (08:39)
[2019-06-06] MEDS: Isosorbide MONOnitrate (24 HR) 30 MG TAB.ER.24H PO SCH (08:39)
[2019-06-06] MEDS: Aspirin 81 MG TAB.CHEW PO SCH (08:39)
[2019-06-06] MEDS: hydroCHLOROthiazide 25 MG TABLET PO SCH (08:39)
[2019-06-06] MEDS: Furosemide 40 MG TABLET PO SCH ×2 (08:42→15:32)
[2019-06-06] MEDS: Heparin 25,000 UNIT/250 ML D5W 25,000 UNIT/250 ML IV.SOLN IVC SCH (18:11)
[2019-06-06] MEDS: Finasteride 5 MG TABLET PO SCH (20:12)
[2019-06-07] MEDS: hydroCHLOROthiazide 25 MG TABLET PO SCH (08:22)
[2019-06-07] MEDS: amLODIPine 5 MG TABLET PO SCH (08:23)
[2019-06-07] MEDS: Isosorbide MONOnitrate (24 HR) 30 MG TAB.ER.24H PO SCH (08:26)
[2019-06-07] MEDS: *HR* Ticagrelor 90 MG TABLET PO SCH ×2 (08:26→20:53)
[2019-06-07] MEDS: Furosemide 40 MG TABLET PO SCH ×2 (08:26→16:34)
[2019-06-07] MEDS: Aspirin 81 MG TAB.CHEW PO SCH (08:26)
[2019-06-07 08:55] LABS: Hematocrit 47.1 % (37.5-50.1); Hemoglobin 16.4 g/dL (12.9-16.9); Mean Corpuscular HGB Conc 34.8 g/dL (31.6-35.5); Mean Corpuscular Hemoglobin 31.5 pg (28.0-33.3); Mean Corpuscular Volume 90.4 fL (83.0-100.0); Mean Platelet Volume 9.4 fL (9.4-12.4); Platelet Count 197 K/mcL (140-400); Red Blood Count 5.21 M/mcL (4.19-5.50); Red Cell Distribution Width 12.3 % (11.5-14.5); White Blood Count 8.4 K/mcL (4.3-11.1)
[2019-06-07 10:17] LABS: BUN/Creatinine Ratio 17 (6-26); Blood Urea Nitrogen 23 mg/dL (8-23); Calcium 9.1 mg/dL (8.6-10.3); Carbon Dioxide 26 mEq/L (23-29); Chloride 97 mEq/L (98-107); Glucose 198 mg/dL (70-105); Osmolality,Calculated 291 (280-300); Sodium 136 mEq/L (136-145); eGFR For African Americans > 60 (> 60); eGFR For Non-African Americans 54 (> 60)
[2019-06-07] MEDS: Finasteride 5 MG TABLET PO SCH (20:53)
[2019-06-08 07:09] VITALS: BP 138/88
[2019-06-08] MEDS: Furosemide 40 MG TABLET PO SCH (08:57)
[2019-06-08] MEDS: Aspirin 81 MG TAB.CHEW PO SCH (08:57)
[2019-06-08] MEDS: hydroCHLOROthiazide 25 MG TABLET PO SCH (08:57)
[2019-06-08] MEDS: Isosorbide MONOnitrate (24 HR) 30 MG TAB.ER.24H PO SCH (08:57)
[2019-06-08] MEDS: *HR* Ticagrelor 90 MG TABLET PO SCH (08:57)
[2019-06-08 09:21] LABS: Basophils # 0.1 K/mcL (0.0-0.2); Basophils % 0.8 %; Eosinophils # 0.2 K/mcL (0.0-0.6); Eosinophils % 2.7 %; Hematocrit 47.1 % (37.5-50.1); Hemoglobin 16.3 g/dL (12.9-16.9); Immature Granulocytes % 0.3 % (0-4); Mean Corpuscular HGB Conc 34.6 g/dL (31.6-35.5); Mean Corpuscular Hemoglobin 31.8 pg (28.0-33.3); Mean Platelet Volume 9.4 fL (9.4-12.4); Monocytes # 0.4 K/mcL (0.0-1.3); Monocytes % 4.4 %; Neutrophils # 5.3 K/mcL (1.6-8.9); Platelet Count 199 K/mcL (140-400); Red Blood Count 5.12 M/mcL (4.19-5.50); Red Cell Distribution Width 12.4 % (11.5-14.5); Segmented Neutrophils % 58.8 %
[2019-06-08 09:23] LABS: BUN/Creatinine Ratio 20 (6-26); Blood Urea Nitrogen 26 mg/dL (8-23); Calcium 9.2 mg/dL (8.6-10.3); Carbon Dioxide 27 mEq/L (23-29); Chloride 99 mEq/L (98-107); Glucose 169 mg/dL (70-105); Osmolality,Calculated 289 (280-300); Potassium 3.1 mEq/L (3.5-5.1); Sodium 135 mEq/L (136-145); eGFR For African Americans > 60 (> 60); eGFR For Non-African Americans 55 (> 60)
[2019-06-09] MEDS ORDERED: Spironolactone 25 MG TABLET PO SCH (09:00)
== END 2019-06-08 13:04 | disposition home or self-care (01) | DRG 247 ==
LOC: EMEROOARM 19:10 → ICNU 19:58 → 2NENU 06-07 15:24
PROVIDERS: ADMIT Internal Medicine Cardiovascular Disease; ATTEND Internal Medicine Cardiovascular Disease

== ENCOUNTER 2021-10-04 13:32 | Inpatient (IN) ==
[2021-10-04] MEDS ORDERED: Iopamidol - 370 200 ML INFUS..BTL ONE (13:34)
[2021-10-04] MEDS ORDERED: 0.9 % Sodium Chloride 2,000 ML ONE (13:34)
[2021-10-04] MEDS ORDERED: *HR* Heparin 10,000 UNIT/10 ML VIAL ONE (13:34)
[2021-10-04] MEDS ORDERED: Heparin 1,000 UNITS/500 mL 500 ML ONE ×2 (13:34→14:52)
[2021-10-04] MEDS ORDERED: Nitroglycerin 1,000 MCG/5 ML VIAL IV ONE ×2 (13:34→14:52)
[2021-10-04] MEDS ORDERED: *HR* Heparin 5,000 UNIT/ML VIAL IVP PRN ×2 (13:38)
[2021-10-04] MEDS ORDERED: *HR* Heparin 5,000 UNIT/ML VIAL IVP ONE (13:38)
[2021-10-04] MEDS ORDERED: *HR* Midazolam HCl 2 MG/2 ML VIAL ONE (13:39)
[2021-10-04] MEDS ORDERED: *HR* FentaNYL (PF) 100 MCG/2 ML VIAL ONE (13:39)
[2021-10-04] MEDS ORDERED: Heparin 25,000UNIT/250ML 1/2NS 25,000 UNIT/250 ML IV.SOLN IVC SCH (13:45)
[2021-10-04] MEDS ORDERED: Heparin 25,000UNIT/250ML 1/2NS 25,000 UNIT/250 ML IV.SOLN ONE (13:47)
[2021-10-04 13:58] LABS: Basophils % 0.6 %; Eosinophils # 0.1 K/mcL (0.0-0.6); Hemoglobin 16.9 g/dL (12.9-16.9); Immature Granulocytes % 0.3 % (0-4); Lymphocytes # 2.1 K/mcL (0.6-4.6); Mean Corpuscular HGB Conc 33.8 g/dL (31.6-35.5); Mean Corpuscular Hemoglobin 31.2 pg (28.0-33.3); Mean Corpuscular Volume 92.4 fL (83.0-100.0); Mean Platelet Volume 9.6 fL (9.4-12.4); Monocytes # 0.4 K/mcL (0.0-1.3); Monocytes % 6.2 %; Neutrophils # 4.5 K/mcL (1.6-8.9); Platelet Count 197 K/mcL (140-400); Red Blood Count 5.41 M/mcL (4.19-5.50); Red Cell Distribution Width 12.5 % (11.5-14.5); Segmented Neutrophils % 62.9 %; White Blood Count 7.1 K/mcL (4.3-11.1)
[2021-10-04 14:15] LABS: INR 1.1; Prothrombin Time 12.6 Seconds (9.4-12.1)
[2021-10-04] MEDS ORDERED: *HR* Bivalirudin 250 MG VIAL IVC ONE (14:16)
[2021-10-04 14:18] LABS: Activated Partial Thrombo Time 36.3 Seconds (26.0-36.0)
[2021-10-04] MEDS ORDERED: *HR* Ticagrelor 90 MG TABLET ONE (14:21)
[2021-10-04] MEDS ORDERED: Naloxone 0.4 MG/ML INJ IVP PRN (14:24)
[2021-10-04] MEDS ORDERED: Perflutren Lipid Microsphere 1.3 ML in 0.9 % Sodium Chloride 8.7 ML IVP PRN (14:27)
[2021-10-04 14:59] LABS: BUN/Creatinine Ratio 13 (6-26); Blood Urea Nitrogen 18 mg/dL (8-23); Calcium 9.4 mg/dL (8.6-10.3); Carbon Dioxide 30 mEq/L (23-29); Chloride 100 mEq/L (98-107); Glucose 137 mg/dL (70-105); Magnesium 2.1 mg/dL (1.6-2.6); Osmolality,Calculated 292 (280-300); Potassium 3.6 mEq/L (3.5-5.1); Sodium 139 mEq/L (136-145); Troponin I 0.29 ng/mL (< 0.04); eGFR For African Americans > 60 (> 60); eGFR For Non-African Americans 53 (> 60)
[2021-10-04] MEDS ORDERED: Acetaminophen 325 MG TABLET PO PRN (15:23)
[2021-10-04] MEDS ORDERED: Nitroglycerin 0.4 MG TAB.SUBL SL PRN (15:23)
[2021-10-04] MEDS ORDERED: 0.9 % Sodium Chloride 1,000 ML IVC SCH (15:30)
[2021-10-04] MEDS: carvediloL 6.25 MG TABLET PO SCH (18:07)
[2021-10-04] MEDS: *HR* Ticagrelor 90 MG TABLET PO SCH (21:55)
[2021-10-05 03:49] LABS: Basophils % 0.5 %; Eosinophils # 0.1 K/mcL (0.0-0.6); Eosinophils % 0.9 %; Hematocrit 44.2 % (37.5-50.1); Hemoglobin 14.9 g/dL (12.9-16.9); Immature Granulocytes % 0.1 % (0-4); Lymphocytes # 2.4 K/mcL (0.6-4.6); Lymphocytes % 31.5 %; Mean Corpuscular HGB Conc 33.7 g/dL (31.6-35.5); Mean Corpuscular Hemoglobin 30.8 pg (28.0-33.3); Mean Corpuscular Volume 91.3 fL (83.0-100.0); Mean Platelet Volume 9.9 fL (9.4-12.4); Monocytes # 0.6 K/mcL (0.0-1.3); Monocytes % 7.4 %; Neutrophils # 4.6 K/mcL (1.6-8.9); Platelet Count 167 K/mcL (140-400); Red Blood Count 4.84 M/mcL (4.19-5.50); Red Cell Distribution Width 12.4 % (11.5-14.5); Segmented Neutrophils % 59.6 %; White Blood Count 7.7 K/mcL (4.3-11.1)
[2021-10-05 04:14] LABS: Troponin I 10.35 ng/mL (< 0.04)
[2021-10-05] MEDS: *HR* Ticagrelor 90 MG TABLET PO SCH ×2 (08:03→19:36)
[2021-10-05] MEDS: carvediloL 6.25 MG TABLET PO SCH ×2 (08:03→16:42)
[2021-10-05 08:23] LABS: BUN/Creatinine Ratio 15 (6-26); Blood Urea Nitrogen 19 mg/dL (8-23); Calcium 8.5 mg/dL (8.6-10.3); Carbon Dioxide 23 mEq/L (23-29); Chloride 101 mEq/L (98-107); Glucose 202 mg/dL (70-105); Osmolality,Calculated 290 (280-300); Potassium 3.3 mEq/L (3.5-5.1); Sodium 136 mEq/L (136-145); eGFR For African Americans > 60 (> 60); eGFR For Non-African Americans 57 (> 60)
[2021-10-05] MEDS ORDERED: Aspirin Enteric Coated 81 MG Tablet PO SCH (09:00)
[2021-10-05] MEDS ORDERED: *HR* Heparin 5,000 UNIT/ML VIAL SQ SCH (09:30)
[2021-10-05] MEDS ORDERED: Acetaminophen 325 MG TABLET PO PRN (10:33)
[2021-10-05] MEDS ORDERED: Naloxone 0.4 MG/ML INJ IVP PRN (10:33)
[2021-10-05] MEDS ORDERED: Nitroglycerin 0.4 MG TAB.SUBL SL PRN (10:33)
[2021-10-05 11:13] LABS: Estimated Average Glucose 140 mg/dl; Hemoglobin A1C 6.5 %
[2021-10-05] MEDS: *HR* Heparin 5,000 UNIT/ML VIAL SQ SCH (16:42)
[2021-10-06 01:34] LABS: Basophils % 0.5 %; Eosinophils # 0.1 K/mcL (0.0-0.6); Eosinophils % 1.5 %; Hematocrit 42.6 % (37.5-50.1); Hemoglobin 14.7 g/dL (12.9-16.9); Immature Granulocytes % 0.3 % (0-4); Lymphocytes # 2.5 K/mcL (0.6-4.6); Lymphocytes % 38.1 %; Mean Corpuscular HGB Conc 34.5 g/dL (31.6-35.5); Mean Corpuscular Hemoglobin 31.3 pg (28.0-33.3); Mean Corpuscular Volume 90.8 fL (83.0-100.0); Mean Platelet Volume 9.4 fL (9.4-12.4); Monocytes # 0.5 K/mcL (0.0-1.3); Monocytes % 7.5 %; Neutrophils # 3.4 K/mcL (1.6-8.9); Platelet Count 151 K/mcL (140-400); Red Blood Count 4.69 M/mcL (4.19-5.50); Red Cell Distribution Width 12.4 % (11.5-14.5); Segmented Neutrophils % 52.1 %; White Blood Count 6.5 K/mcL (4.3-11.1)
[2021-10-06 01:58] LABS: BUN/Creatinine Ratio 17 (6-26); Blood Urea Nitrogen 22 mg/dL (8-23); Calcium 8.7 mg/dL (8.6-10.3); Carbon Dioxide 27 mEq/L (23-29); Chloride 103 mEq/L (98-107); Glucose 135 mg/dL (70-105); Osmolality,Calculated 289 (280-300); Potassium 3.8 mEq/L (3.5-5.1); Sodium 137 mEq/L (136-145); eGFR For African Americans > 60 (> 60); eGFR For Non-African Americans 56 (> 60)
[2021-10-06 01:59] LABS: Chol/HDL Ratio 5.8 (0-4.9)
[2021-10-06] MEDS: *HR* Heparin 5,000 UNIT/ML VIAL SQ SCH ×2 (06:04→16:19)
[2021-10-06] MEDS: carvediloL 6.25 MG TABLET PO SCH ×2 (07:25→16:20)
[2021-10-06] MEDS: *HR* Ticagrelor 90 MG TABLET PO SCH ×2 (07:25→19:49)
[2021-10-06] MEDS: Aspirin Enteric Coated 81 MG Tablet PO SCH (08:31)
[2021-10-06] MEDS ORDERED: 0.9 % Sodium Chloride 2,000 ML ONE (11:29)
[2021-10-06] MEDS ORDERED: *HR* FentaNYL (PF) 100 MCG/2 ML VIAL ONE (11:29)
[2021-10-06] MEDS ORDERED: *HR* Midazolam HCl 2 MG/2 ML VIAL ONE (11:29)
[2021-10-06] MEDS ORDERED: Nitroglycerin 1,000 MCG/5 ML VIAL IV ONE (11:30)
[2021-10-06] MEDS ORDERED: Heparin 1,000 UNITS/500 mL 500 ML ONE (11:30)
[2021-10-06] MEDS ORDERED: *HR* Heparin 10,000 UNIT/10 ML VIAL ONE (11:30)
[2021-10-06] MEDS ORDERED: Iopamidol - 370 200 ML INFUS..BTL ONE (11:30)
[2021-10-06] MEDS: 0.9 % Sodium Chloride 500 ML IVC SCH ×2 (15:24→21:42)
[2021-10-07] MEDS: *HR* Heparin 5,000 UNIT/ML VIAL SQ SCH ×2 (05:40→17:29)
[2021-10-07 06:24] LABS: Hematocrit 42.9 % (37.5-50.1); Hemoglobin 14.6 g/dL (12.9-16.9)
[2021-10-07 06:55] LABS: BUN/Creatinine Ratio 16 (6-26); Blood Urea Nitrogen 20 mg/dL (8-23); Troponin I 2.57 ng/mL (< 0.04); eGFR For African Americans > 60 (> 60); eGFR For Non-African Americans 60 (> 60)
[2021-10-07] MEDS: *HR* Ticagrelor 90 MG TABLET PO SCH ×2 (08:39→20:50)
[2021-10-07] MEDS: carvediloL 6.25 MG TABLET PO SCH (08:39)
[2021-10-07] MEDS: Aspirin Enteric Coated 81 MG Tablet PO SCH (08:40)
[2021-10-07] MEDS: 0.9 % Sodium Chloride 500 ML IVC SCH ×2 (08:40→08:43)
[2021-10-07 17:24] LABS: Magnesium 1.9 mg/dL (1.6-2.6); Potassium 3.7 mEq/L (3.5-5.1)
[2021-10-07] MEDS: carvediloL 25 MG TABLET PO SCH (17:29)
[2021-10-08 02:29] LABS: BUN/Creatinine Ratio 17 (6-26); Blood Urea Nitrogen 19 mg/dL (8-23); Calcium 8.8 mg/dL (8.6-10.3); Carbon Dioxide 25 mEq/L (23-29); Chloride 103 mEq/L (98-107); Glucose 133 mg/dL (70-105); Osmolality,Calculated 286 (280-300); Potassium 3.6 mEq/L (3.5-5.1); Sodium 136 mEq/L (136-145); eGFR For African Americans > 60 (> 60); eGFR For Non-African Americans > 60 (> 60)
[2021-10-08] MEDS: *HR* Heparin 5,000 UNIT/ML VIAL SQ SCH (05:12)
[2021-10-08 06:34] VITALS: BP 165/83; TEMP 97.5; O2SAT 99
[2021-10-08] MEDS: *HR* Ticagrelor 90 MG TABLET PO SCH (07:35)
[2021-10-08] MEDS: carvediloL 25 MG TABLET PO SCH (07:35)
[2021-10-08] MEDS: Aspirin Enteric Coated 81 MG Tablet PO SCH (07:35)
[2021-10-08] MEDS ORDERED: Spironolactone 25 MG TABLET PO SCH (09:00)
[2021-10-08 09:30] VITALS: PULSE 57
[2021-10-08] MEDS ORDERED: Sacubitril/Valsartan 24/26 MG 1 TABLET PO SCH (12:17)
[2021-10-08] MEDS ORDERED: Bumetanide 1 MG TABLET PO SCH (12:30)
== END 2021-10-08 13:30 | disposition home or self-care (01) | DRG 247 ==
LOC: EMEROOARM 13:32 → ICNU 13:32 → 2NNU 10-06 16:33
PROVIDERS: ADMIT Internal Medicine Interventional Cardiology; ATTEND Internal Medicine Interventional Cardiology